=== PATIENT | female | born 1970 | race African-American/Black ===

== ENCOUNTER → 2016-04-17 | Outpatient (CLI) | payer OTHER ==
[~2016-04-17] VITALS: Ht 162.6 cm; Wt 93.9 kg
[~2016-04-17] MED LIST: ALPRAZOLAM ER1 MG PO; AZOR 10-20 MG1 EACH PO; AZOR 10-40 MG1 EACH PO; BENTYL 10 MG CA10 M1 PO; BENTYL 20 MG TA20 M1 PO; CELEBREX 200 M200 M1 PO; CELEBREX 200 M200 MG PO; CLEOCIN HCL150 MG PO; CLEOCIN HCL300 MG PO; ENDOCET 7.5-321 EACH PO; FLEXERIL PO; GLUCOPHAGE500 MG PO; GRALISE600 MG PO; HYDROCODON-ACE1 EAC7 PO; HYDROCODONE-AP1 EAC6 PO; IBUPROFEN 200200 M1; IBUPROFEN 600600 M1 PO; LIDODERM 5%1 PATC1 TRANSDERM; LYRICA; MEDROLDOSEPACK PO; METHADONE HCL 110 M1 PO; MIRALAX17 GM PO; MOBIC15 MG PO; MORPHINE SULFAT15 M3 PO; MS CONTIN15 MG PO; NABUMETONE 750750 M1 PO; NEURONTIN 300300 M1 PO; NORCO 5-325 TA1 EACH PO; NORFLEX100 MG PO; OXYCODON-ACETA1 EAC1 PO; OXYCONTIN10 M1 PO; PERCOCET 10-321 EAC1 PO; PERCOCET 5-3251 EACH PO; PERCOCET 7.5-31 EAC1 PO; PERCOCET 7.5-31 EACH PO; PERCOCET PO; PREDNISONE50 MG PO; PROVENTIL HFA6.7 G1; PULMICORT FLE180 MCG IH; REGLAN 10 MG TA10 MG PO; ULTRAM 50MG TAB50 MG PO; ZANTAC 150MG T150 MG PO
--- NOTE | ~2016-04-17 | HPC ---
[facility] [place] [address] PAIN MANAGEMENT CONSULTATION Name: MARVINOLGA [id number] Admission: 04/17/16 Attend Phys: Lili Gama MD Discharge: Date of : 74 Report #: [id number] THIS REPORT FOR: //name// CC: Latia Doan MD DATE OF SERVICE: 04/17/2016 FOLLOWUP COMPLAINT: "I had been working pretty hard and my pain gets worse after a long day of working." FOLLOWUP HISTORY: The patient is a 46-year-old female who has been followed in the pain clinic because of lumbar radiculopathy. As you recall, she has a disk herniation in her back. She has suffered from lumbar radiculopathy. She has gleaned benefits from the injections in the past. Greater than 50% improvement have been noted. At this juncture, she is working more hours and feels that her job is a bit more stressful. She is experiencing more pain and discomfort, particularly after a day of walking and hard work. She is experiencing pain in the low back with her hips down into her legs. There is a shooting sensation which is sharp, aching and is exacerbated by standing. She rates it as a 5-10 depending on the activity level. Bending and other activities of daily living can exacerbate her discomfort. PHYSICAL EXAMINATION: Blood pressure 152/107, pulse 93, respiratory rate 18, and room air saturations 100%. The patient has not fallen since we saw her last. She does have pain and discomfort radiating down into the low back area with pain down into the left calf area. IMPRESSION: 1. The patient with greater than 50% improvement in pain after an epidural steroid injection. 2. Lumbar radiculopathy with a bulging disk on the MRI consistent with the dermatome of pain in the low back area, this is the L5-S1 distribution. RECOMMENDATIONS: We discussed treatment options with the patient. At this juncture, she will continue with conservative treatment today. She will return in the near future for an epidural steroid injection to help decrease the pain and discomfort. [address] [address] PAIN MANAGEMENT CONSULTATION Name: OLGA MARVIN Room #: REG [facility] Noemi#: [id number] Admission: 04/17/16 Attend Phys: Lili Gama MD Discharge: Date of : 74 Report #: [id number] We would like to thank you for letting us participate in her care. We hope she continues to improve. <ELECTRONICALLY SIGNED> By: Lili Gama MD 04/20/16 0819 1109 1215 Lili Gama MD /nt
[2016-04-17 08:53] VITALS: BP 152/107
== END | disposition home or self-care (01) ==
LOC: PAIN 05:28
DX: M54.16 Radiculopathy, lumbar region (principal); G89.29 Other chronic pain

== ENCOUNTER → 2016-07-13 | Outpatient (CLI) | payer OTHER ==
[~2016-07-13] VITALS: Ht 162.6 cm; Wt 89.4 kg
[~2016-07-13] MED LIST changes: +MORPHINE SULFAT15 MG PO; +OXAYDO7.5 MG PO; +OXYCODONE-APAP1 EAC6 PO
--- NOTE | ~2016-07-13 | HPC ---
[facility] [place] [address] [address] [place] [address] PAIN MANAGEMENT CONSULTATION Name: MARVINOLGA Room #: REG BESNON FranklinSebastián#: [id number] Admission: 07/13/16 Attend Phys: Lili Gama MD Discharge: Date of : 74 Report #: [id number] THIS REPORT FOR: //name// CC: Latia Doan MD DATE OF SERVICE: 07/13/2016 FOLLOWUP COMPLAINT: The pain has gotten a little worse. I have lost some weight and have been exercising. FOLLOWUP HISTORY: The patient is a 46-year-old female who has been seen in the pain clinic because of lumbar radiculopathy. As you may recall, she suffers from lumbar radiculopathy. She has been exercising more. She has noticed that her pain and discomfort has increased somewhat. She has lost some weight. She still is having some pain, which is radiating down into her left leg. She rates it as a 7/10. Pain is worse with standing, bending and with certain movements. She is experiencing some sharp shooting pain, which is aching and stabbing. It makes work more problematic. She has worked last evening and feels a little bit tired today. PHYSICAL EXAMINATION: Blood pressure 178/113, pulse 91, respiratory rate 16, room air saturation 99%. The patient states her blood pressures are usually low nervous today, being in physician's office. Height 5 feet 4 inches, weight 89 kilograms, BMI is 33. The patient has pain and discomfort radiating down to the left leg involving her calf. IMPRESSION: 1. Lumbar radiculopathy, which has improved greater than 50% after epidural steroid injections. 2. Bulging disk on her MRI consistent with pain, which she is experiencing in the L5-S1 dermatomal region. RECOMMENDATION: We will proceed with another epidural steroid injection. We will also renew her medications. She will call us if she has any problems with her medications. PROCEDURE NOTE: The patient was placed in the prone position. She agreed to proceed after risk and benefits were again reviewed. The patient was placed in the prone position. Fluoroscopy was used to identify the L5-S1 interspace. This area had been sterilely prepped with Betadine and infiltrated with 0.25% bupivacaine. Total of 80 mg Depo-Medrol, 40 mg triamcinolone and 2 mL of 0.25% bupivacaine was injected. The patient tolerated the procedure well. Her pain decreased to a 4-5 at the time of discharge. [place] [address] PAIN MANAGEMENT CONSULTATION Name: OLGA MARVIN Room #: [facility] [id number] Admission: 07/13/16 Attend Phys: Lili Gama MD Discharge: Date of : 74 Report #: [id number] as needed. The patient has been given a script and will visit physical therapist for evaluation and recommendations on treatment. By: [id number] Lili Gama MD /comfort
[2016-07-13 12:45] VITALS: BP 178/113
== END | disposition home or self-care (01) ==
LOC: PAIN 05-25 07:23
DX: M54.16 Radiculopathy, lumbar region (principal); M48.06 Spinal stenosis, lumbar region

== ENCOUNTER 2016-09-18 11:09 | Emergency (ER) | payer OTHER ==
[~2016-09-18] VITALS: Ht 162.6 cm; Wt 83.5 kg
[2016-09-18 12:08] LABS: ABSOLUTE NEUTROPHILS 5.6 thou/uL (1.4-8.2); BASOPHILS 0.5 % (0.0-2.0); EOSINOPHILS 1.5 % (0.0-3.0); HEMATOCRIT 36.8 % (37.0-47.0); HEMOGLOBIN 12.3 gm/dL (12.0-15.0); LYMPHOCYTES 20.5 % (24.0-44.0); MCH 29.4 pg (26.0-34.0); MCHC 33.3 g/dL (28.0-37.0); MCV 88.4 fL (80.0-100.0); MONOCYTES 6.3 % (1.0-8.0); PLATELET COUNT 259 thou/uL (150-400); POLYS 71.2 % (36.0-66.0); RBC 4.17 mil/uL (4.20-5.00); WBC 7.8 thou/uL (4.0-11.0)
[2016-09-18 12:09] LABS: MANUAL DIFF NO
[2016-09-18 12:16] LABS: CALCIUM 9.2 mg/dL (8.5-10.1); CREATININE 0.7 mg/dL (0.6-1.0); POTASSIUM 4.2 mmol/L (3.5-5.1)
[2016-09-18] MEDS ORDERED: CITALOPRAM HBR40 MG PO (12:16)
[2016-09-18 12:20] LABS: ALBUMIN 3.4 g/dL (3.4-5.0); TOTAL BILIRUBIN 0.3 mg/dL (<0.1-1.0); TOTAL PROTEIN 7.1 g/dL (6.4-8.2)
[2016-09-18] MEDS ORDERED: NORCO 5-325 TA1 EACH PO (14:15)
[2016-09-18 16:17] LABS: URINE BILIRUBIN NEGATIVE (Negative); URINE BLOOD NEGATIVE (Negative); URINE COLOR YELLOW; URINE GLUCOSE-RANDOM* NEGATIVE (Negative); URINE KETONES TRACE (Negative); URINE NITRITE NEGATIVE (Negative); URINE PROTEIN (DIPSTICK) NEGATIVE (Negative); URINE UROBILINOGEN 0.2 E.U./dl (0.2-1.0)
== END 2016-09-18 14:47 | disposition home or self-care (01) ==
LOC: ER 11:09
PROVIDERS: Physician Assistant
DX: K85.90 Acute pancreatitis without necrosis or infection, unspecified (principal); G89.29 Other chronic pain; I10 Essential (primary) hypertension; J45.909 Unspecified asthma, uncomplicated; Z90.49 Acquired absence of other specified parts of digestive tract; Z88.1 Allergy status to other antibiotic agents; Z88.0 Allergy status to penicillin; F10.99 Alcohol use, unspecified with unspecified alcohol-induced disorder

== ENCOUNTER 2016-09-19 15:20 | Inpatient (IN) | payer OTHER ==
[~2016-09-19] VITALS: Ht 162.6 cm; Wt 83.5 kg
--- NOTE | ~2016-09-19 | S ---
[facility] [place] [address] SURGICAL PATH RPT PROCEDURE Name: CATHI MARVIN Room #: 426-P [facility] IN M.R.#: [id number] Admission: 09/19/16 Date of : 74 Discharge: 09/21/16 Report #: [id number] Path Case #: [id number] PATHOLOGY REPORT COLLECTION DATE: 09/21/2016 RECEIVED DATE: 09/21/2016 SUBMITTING PHYS: Dr. Clyde Rashid OTHER PHYS: DARYL Ceja SPECIMEN(S) RECEIVED: A.Antrum bx B.Antrum * * * * * * * * * * * * FINAL DIAGNOSIS: A. Tissue designated as "celiac and H. pylori-antrum," endoscopic biopsy: - Small bowel-type mucosa with no diagnostic abnormalities. - Negative for Helicobacter pylori. B. Gastric mucosa, antrum, endoscopic biopsy: - Mild reactive gastropathy associated with fibrotic lamina propria. - Negative for intestinal metaplasia or atrophy. - Negative for Helicobacter pylori. COMMENT: Helicobacter pylori immunohistochemical stain performed on block A1-negative. Helicobacter pylori immunohistochemical stain performed on block B1-negative. (IUV:mgr; d/t: 09/24/16) PATHOLOGIST: Rohini Levi M.D. REPORT ELECTRONICALLY SIGNED BY: Rohini Levi M.D. DATE/TIME: 09/24/2016 17:37 * * * * * * * * * * * * GROSS PATHOLOGY: A. Received in formalin labeled "Cathi Marvin, biopsy celiac and H. pylori-antrum," are two segments of martinez soft tissue measuring 0.6 x 0.5 x 0.1 cm in aggregate dimensions and ranging from 0.4 to 0.5 cm in maximum dimension. The specimen is submitted entirely in cassette A1. B. Received in formalin labeled "Cathi Marvin, antral biopsy, R/O H. pylori," are two segments of martinez soft tissue measuring 0.8 x 0.4 x 0.1 cm in aggregate dimensions and ranging from 0.3 to 0.8 cm in maximum dimension. The specimen is submitted entirely in cassette [facility] [address] [place] [address] SURGICAL PATH RPT PROCEDURE Name: CATHI MARVIN Room #: 426-P DIS IN M.R.#: [id number] Admission: 09/19/16 Date of : 74 Discharge: 09/21/16 Report #: [id number] Path Case #: [id number]. (CAA; 09/23/2016) CLINICAL HISTORY: Pre-op diagnosis: Abdominal pain Post-op diagnosis: Gastritis, esophagitis, hiatal hernia INITIAL CPT CODE(S): A; 95487, 91919 B; 08051, 83407 Professional services performed by [facility] at [facility] [address] , [place] [address] Technical services performed by [facility] at [address] [place] [address]., [address], [place] [address]. [facility] [address] [place] [address] PHONE: [phone] DIRECTOR: Isaak Hardy M.D. * * * END OF REPORT * * *
--- NOTE | ~2016-09-19 | HC ---
[facility] [place] [address] CONSULTATION Name: OLGA MARVIN Rachel Room #: 426-P [facility] IN .R.#: [id number] Admission: 09/19/16 Attend Phys: Rachid Tang MD Discharge: 09/21/16 Date of : 74 Report #: [id number] THIS REPORT FOR: //name// CC: Rachid Herring DATE OF SERVICE: 09/20/2016 CHIEF COMPLAINT: Abdominal pain. HISTORY OF PRESENT ILLNESS: The patient is a very pleasant 46-year-old -Niue[place] female patient who is employed at [employer]. She has past medical history of chronic abdominal pain, chronic back pain with hypertension, asthma, polycystic ovarian disease, rheumatoid arthritis. She is followed by pain medicine service and requires daily narcotic for her chronic pain. She is allergic to PENICILLIN. She denies emesis or hematemesis, but has had some nausea at times, especially during this most recent exacerbation. She was seen in the emergency department on 09/19/[address] scan of the abdomen and pelvis with contrast. This showed no acute intraabdominal abnormalities. Laboratory studies at that time showed a white blood cell count of 7.8, hemoglobin of 12.1, platelets of 255, AST of 20, ALT of 28, alkaline phosphatase of 54, lipase of 125. She had been seen previously recently in the emergency department and had a mild elevation in her lipase at 600, creatinine of 0.8, BUN of 7. PAST MEDICAL HISTORY: Positive for chronic back pain, hypertension, asthma, polycystic ovarian syndrome, ectopic , history of pancreatitis. PAST SURGICAL HISTORY: Positive for cholecystectomy and tubal ligation. She is followed by pain medicine clinic and has had epidural injections for chronic back pain. Also of note, the patient describes that her pain is significantly worsened during menstruation. She is regular and denies menorrhagia. MEDICATIONS: Include oxycodone, morphine, Celexa, MiraLax, gabapentin. She has tried Bentyl in the past. ALLERGIES: Include KEFLEX and PENICILLIN. REVIEW OF SYSTEMS: CONSTITUTIONAL: Negative for fevers or chills. Positive for 30-40 pound weight loss over the past year. HEENT: No dysphagia or odynophagia. No headache. CARDIOVASCULAR: No chest pain or palpitations. PULMONARY: No productive cough or shortness of breath. [facility] [address] [place] [address] CONSULTATION Name: MELVA MARVINSHANNENRona Rachel Room #: 426-P [facility] IN [facility].#: [id number] Admission: 09/19/16 Attend Phys: Rachid Tang MD Discharge: 09/21/16 Date of : 74 Report #: [id number] GASTROINTESTINAL: Positive for chronic crampy abdominal pain. This seems to be worsened at the time of menstruation. Some nausea, but denies emesis. No melena, hematochezia, diarrhea or constipation. She tolerates regular diet well. MUSCULOSKELETAL: She is positive for chronic back pain. NEUROLOGIC: No focal weakness, tingling or numbness. CUTANEOUS: No focal lesions or rashes. ENDOCRINE: No heat or cold intolerance. HEMATOLOGIC: No spontaneous epistaxis or easy ecchymosis. PHYSICAL EXAMINATION: GENERAL: The patient is awake, alert and oriented. She is in no acute distress. She is afebrile and normotensive. HEENT: Head is atraumatic and normocephalic. No icterus is appreciated. Pupils are equally round and reactive. Mucous membranes are clear and pink and well hydrated. NECK: Supple, without jugular venous distention. HEART: Regular without murmur. LUNGS: Clear to auscultation without respiratory distress. ABDOMEN: Soft and mildly tender to palpation throughout the entire abdomen. No focal palpable masses, no obvious palpable hernia and no rebound or guarding is appreciated. EXTREMITIES: Without clubbing, cyanosis or edema. PSYCHIATRIC: Shows normal mood and affect. CT scan images are reviewed in detail and no obvious intra-abdominal processes are identified. Gallbladder is surgically absent. Appendix is unremarkable. No surrounding stranding. No obvious diverticulitis appreciated. No free air or free fluid appreciated. IMPRESSION: 1. A 46-year-old -Niuean female with chronic severe abdominal pain as well as history of back pain requiring daily necrotic medication, followed by pain medicine service, has previously utilized epidural spinal injections for pain control. Crampy abdominal pain seems to be significantly worsened during time of menstruation according to the patient's detailed history. She also has history of ectopic . Suspect that endometriosis may be a contributing factor to this chronic abdominal pain. 2. The patient does have history of reflux and uses significant nonsteroidal antiinflammatory medications in addition to narcotic pain medication. Gastroenterology evaluation pending. RECOMMENDATION: 1. No immediate surgical intervention recommended. I have contracted obstetric gynecology office and arranged for an evaluation for the patient in the near future. [facility] [address] [place] [address] CONSULTATION Name: OLGA MARVIN Room #: 426-P DIS IN M.R.#: [id number] Admission: 09/19/16 Attend Phys: Rachid Tang MD Discharge: 09/21/16 Date of : 74 Report #: [id number] 2. Consultation very much appreciated. We will continue to follow closely and make further recommendations based upon clinical status. <ELECTRONICALLY SIGNED> By: Angus Jamil MD 09/27/16 0901 1704 1505 Angus Jamil MD /nt
[2016-09-19 15:20] VITALS: BP 140/110
[~2016-09-19 15:20] MED LIST changes: +CITALOPRAM HBR40 MG PO
[2016-09-19 16:19] LABS: ABSOLUTE NEUTROPHILS 5.4 thou/uL (1.4-8.2); BASOPHILS 0.3 % (0.0-2.0); EOSINOPHILS 1.1 % (0.0-3.0); HEMATOCRIT 36.1 % (37.0-47.0); HEMOGLOBIN 12.1 gm/dL (12.0-15.0); LYMPHOCYTES 22.8 % (24.0-44.0); MCHC 33.6 g/dL (28.0-37.0); MCV 89.2 fL (80.0-100.0); MONOCYTES 6.3 % (1.0-8.0); PLATELET COUNT 255 thou/uL (150-400); POLYS 69.5 % (36.0-66.0); RBC 4.04 mil/uL (4.20-5.00); WBC 7.8 thou/uL (4.0-11.0)
[2016-09-19 16:20] LABS: MANUAL DIFF NO
[2016-09-19 16:27] LABS: ANION GAP 8 mmol/L (7-16); BUN 7 mg/dL (7-18); CALCIUM 8.9 mg/dL (8.5-10.1); CHLORIDE 104 mmol/L (98-107); CO2 28 mmol/L (21-32); CREATININE 0.8 mg/dL (0.6-1.0); GLUCOSE 94 mg/dL (74-106); POTASSIUM 3.9 mmol/L (3.5-5.1); SODIUM 140 mmol/L (136-145)
[2016-09-19 16:31] LABS: ALBUMIN 3.3 g/dL (3.4-5.0); ALKALINE PHOSPHATASE 54 U/L (46-116); SGOT 20 U/L (15-37); SGPT 28 U/L (30-65); TOTAL BILIRUBIN 0.2 mg/dL (<0.1-1.0); TOTAL PROTEIN 7.2 g/dL (6.4-8.2)
[2016-09-19 16:41] LABS: DIRECT BILIRUBIN < 0.1 mg/dL (<0.1-0.3)
[2016-09-19 17:35] VITALS: BP 122/65
[2016-09-19 20:00] VITALS: BP 144/87
[2016-09-20 04:00] VITALS: BP 157/100
[2016-09-20 06:37] LABS: ABSOLUTE NEUTROPHILS 3.9 thou/uL (1.4-8.2); BASOPHILS 0.3 % (0.0-2.0); EOSINOPHILS 1.8 % (0.0-3.0); HEMATOCRIT 33.2 % (37.0-47.0); HEMOGLOBIN 10.8 gm/dL (12.0-15.0); LYMPHOCYTES 30.1 % (24.0-44.0); MCH 29.4 pg (26.0-34.0); MCHC 32.6 g/dL (28.0-37.0); MONOCYTES 7.7 % (1.0-8.0); PLATELET COUNT 222 thou/uL (150-400); POLYS 60.1 % (36.0-66.0); RBC 3.69 mil/uL (4.20-5.00); WBC 6.4 thou/uL (4.0-11.0)
[2016-09-20 06:47] LABS: MANUAL DIFF NO
[2016-09-20 06:52] LABS: ALBUMIN 2.7 g/dL (3.4-5.0); CALCIUM 8.2 mg/dL (8.5-10.1); CREATININE 0.6 mg/dL (0.6-1.0); POTASSIUM 3.8 mmol/L (3.5-5.1); TOTAL BILIRUBIN 0.2 mg/dL (<0.1-1.0); TOTAL PROTEIN 6.2 g/dL (6.4-8.2)
[2016-09-20 07:48] VITALS: BP 138/73
[2016-09-20 15:39] VITALS: BP 125/92
[2016-09-20 20:00] VITALS: BP 130/82
[2016-09-21 04:13] VITALS: BP 125/75
[2016-09-21 07:16] VITALS: BP 146/83
[2016-09-21] MEDS ORDERED: NORCO 5-325 TA1 EACH PO (11:32)
[2016-09-21 14:57] VITALS: BP 146/83
[2016-09-21 15:31] VITALS: BP 133/77
[2016-09-21] MEDS ORDERED: PROTONIX40 M1 PO (15:54)
[2016-09-21 16:22] VITALS: BP 146/83
[2016-09-21 16:48] VITALS: BP 146/83
[2016-09-22] MEDS ORDERED: ZOFRAN ODT8 MG PO (09:12)
== END 2016-09-21 16:48 | disposition home or self-care (01) | DRG 391 ==
LOC: ER 15:20 → 4E 16:17 → EROBS 16:17 → 4E 17:32
PROVIDERS: Nurse Practitioner
PROC: 0DB98ZX Excision of Duodenum, Via Natural or Artificial Opening Endoscopic, Diagnostic (ICD-10-PCS; principal; 2016-09-21)
PROC: 0DB78ZX Excision of Stomach, Pylorus, Via Natural or Artificial Opening Endoscopic, Diagnostic (ICD-10-PCS; principal; 2016-09-21)
DX: K44.9 Diaphragmatic hernia without obstruction or gangrene (principal); E43 Unspecified severe protein-calorie malnutrition; F11.20 Opioid dependence, uncomplicated; K20.9 Esophagitis, unspecified; K29.70 Gastritis, unspecified, without bleeding; I10 Essential (primary) hypertension; J45.909 Unspecified asthma, uncomplicated; G89.29 Other chronic pain; M54.9 Dorsalgia, unspecified; M06.9 Rheumatoid arthritis, unspecified; E28.2 Polycystic ovarian syndrome; K59.00 Constipation, unspecified; F41.9 Anxiety disorder, unspecified; F32.9 Major depressive disorder, single episode, unspecified; Z88.8 Allergy status to other drugs, medicaments and biological substances; Z90.49 Acquired absence of other specified parts of digestive tract; Z82.5 Family history of asthma and other chronic lower respiratory diseases; Z88.0 Allergy status to penicillin; Z80.9 Family history of malignant neoplasm, unspecified; Z83.3 Family history of diabetes mellitus; Z79.899 Other long term (current) drug therapy
CPT/HCPCS: 10084; 62110; 62900; 70005

== ENCOUNTER 2016-09-22 06:08 | Emergency (ER) | payer OTHER ==
[~2016-09-22] VITALS: Ht 162.6 cm; Wt 83.9 kg
[~2016-09-22 06:08] MED LIST changes: +PROTONIX40 M1 PO
[2016-09-22] MEDS ORDERED: ZOFRAN ODT8 MG PO (09:12)
== END 2016-09-22 09:18 | disposition home or self-care (01) ==
LOC: ER 06:08
DX: R10.13 Epigastric pain (principal); G89.29 Other chronic pain; J45.909 Unspecified asthma, uncomplicated; I10 Essential (primary) hypertension; F10.99 Alcohol use, unspecified with unspecified alcohol-induced disorder; Z88.1 Allergy status to other antibiotic agents; Z88.0 Allergy status to penicillin

== ENCOUNTER 2016-10-02 09:00 | Emergency (ER) | payer OTHER ==
[~2016-10-02] VITALS: Ht 162.6 cm; Wt 83.5 kg
[~2016-10-02 09:00] MED LIST changes: +ZOFRAN ODT8 MG PO
[2016-10-02 09:42] LABS: ABSOLUTE NEUTROPHILS 6.9 thou/uL (1.4-8.2); BASOPHILS 0.1 % (0.0-2.0); EOSINOPHILS 1.3 % (0.0-3.0); HEMATOCRIT 39.7 % (37.0-47.0); MCHC 32.7 g/dL (28.0-37.0); MCV 88.7 fL (80.0-100.0); MONOCYTES 7.5 % (1.0-8.0); PLATELET COUNT 351 thou/uL (150-400); POLYS 66.1 % (36.0-66.0); RBC 4.47 mil/uL (4.20-5.00); RDW 14.4 % (10.5-14.5); WBC 10.4 thou/uL (4.0-11.0)
[2016-10-02 09:47] LABS: MANUAL DIFF NO
[2016-10-02 09:58] LABS: ANION GAP 10 mmol/L (7-16); BUN 10 mg/dL (7-18); CALCIUM 9.3 mg/dL (8.5-10.1); CHLORIDE 104 mmol/L (98-107); CO2 29 mmol/L (21-32); CREATININE 0.9 mg/dL (0.6-1.0); GLUCOSE 112 mg/dL (74-106); POTASSIUM 3.3 mmol/L (3.5-5.1); SODIUM 143 mmol/L (136-145)
[2016-10-02 10:02] LABS: ALBUMIN 3.9 g/dL (3.4-5.0); ALKALINE PHOSPHATASE 58 U/L (46-116); DIRECT BILIRUBIN < 0.1 mg/dL (<0.1-0.3); SGOT 17 U/L (15-37); SGPT 26 U/L (30-65); TOTAL BILIRUBIN 0.3 mg/dL (<0.1-1.0); TOTAL PROTEIN 8.1 g/dL (6.4-8.2)
[2016-10-02] MEDS ORDERED: NORCO 5-325 TA1 EACH PO (11:27)
[2016-10-05] MEDS ORDERED: ZOFRAN ODT8 MG PO (09:46)
[2016-10-05] MEDS ORDERED: MORPHINE SULFAT15 MG PO ×2 (09:46→10:30)
[2016-10-05] MEDS ORDERED: MIRALAX17 GM PO (09:46)
[2016-10-05] MEDS ORDERED: OXYCODONE-APAP1 EAC6 PO (09:46)
[2016-10-05] MEDS ORDERED: GRALISE600 MG PO (09:46)
[2016-10-05] MEDS ORDERED: PROTONIX40 M1 PO (09:46)
[2016-10-05] MEDS ORDERED: PERCOCET 7.5-31 EAC1 PO (10:24)
[2016-10-05] MEDS ORDERED: MS CONTIN15 MG PO ×3 (10:24→10:30)
[2016-10-05] MEDS ORDERED: PERCOCET 5-3251 EACH PO (10:24)
== END 2016-10-02 11:39 | disposition home or self-care (01) ==
LOC: ER 09:00
PROVIDERS: Physician Assistant
DX: R10.13 Epigastric pain (principal); E87.6 Hypokalemia; R11.2 Nausea with vomiting, unspecified; I10 Essential (primary) hypertension; J45.909 Unspecified asthma, uncomplicated; F10.99 Alcohol use, unspecified with unspecified alcohol-induced disorder; Z90.49 Acquired absence of other specified parts of digestive tract; Z88.1 Allergy status to other antibiotic agents

== ENCOUNTER → 2016-10-05 | Outpatient (CLI) | payer OTHER ==
[~2016-10-05] VITALS: Ht 162.6 cm; Wt 85.4 kg
--- NOTE | ~2016-10-05 | HPC ---
[facility] [place] [address] [place] [address] PAIN MANAGEMENT CONSULTATION Name: OLGA MARVIN Room #: REG BENSON DuboisSebastiánDemarcoSebastián#: [id number] Admission: 10/05/16 Attend Phys: Lili Gama MD Discharge: Date of : 74 Report #: [id number] THIS REPORT FOR: //name// CC: Latia Doan MD DATE OF SERVICE: 10/05/2016 FOLLOWUP COMPLAINT: "I had been in the hospital. I think I have endometriosis." FOLLOWUP HISTORY: The patient is a 46-year-old female who has been followed in the pain clinic because of lumbar radiculopathy. She has undergone epidural steroid injections in the past. She gleans greater than 50% improvement after the injections. She returns today indicating that she continues to have pain and discomfort in her back with pain radiating down into her left leg. She has been hospitalized. She states that she has lost some weight. This was of concern. She has had a number of tests. She feels that the reason for the abdominal pain most likely is endometriosis. She is going to follow up with her [employer]. She finds that her medications continue to be helpful. She is taking them as prescribed. She is not having any problems with mentation. She is not having any problems with withdrawal. She feels that they enable her to continue working and to engage in activities of daily living with a decrease in her pain. She would like to continue their use. PHYSICAL EXAMINATION: Blood pressure 148/97, pulse 86, respiratory rate 16, room air saturation is 100, height 5 feet 4 inches, weight 162 pounds, BMI is 32. The patient has not fallen since we saw her last. She rates her pain as a 6/10. She continues to have pain and discomfort, which is shooting down in her leg with aching, stabbing and primarily on the left side and involving the hip as well. IMPRESSION: 1. Lumbar radiculopathy, which has improved in the past with epidural steroid injections greater than 50%. 2. on the MRI with findings of a disk pressing on the L5-S1 nerve dermatomal region. 3. Abdominal pain - the patient has undergone a number of test and they have reasoned that it may be secondary to endometriosis. She will follow up with her [employer]. RECOMMENDATIONS: We discussed treatment options with the patient. Risks and benefits of an epidural steroid injection were again reviewed. Possible complications were reviewed. The patient elects to proceed. [address] [address] PAIN MANAGEMENT CONSULTATION Name: OLGA MARVIN Room #: REG [facility]#: [id number] Admission: 10/05/16 Attend Phys: Lili Gama MD Discharge: Date of : 74 Report #: [id number] PROCEDURE NOTE: The patient was placed in the prone position. Fluoroscopy was used to identify the L5-S1 interspace. This area had been sterilely prepped with Betadine and infiltrated with 0.25% bupivacaine. A 17-gauge approach was used. Total of 80 mg Depo-Medrol, 40 mg triamcinolone and 2 mL of 0.25% bupivacaine was injected. The patient tolerated the procedure well. There were no complications. She remained in the pain clinic for an appropriate amount of time. We would like to thank you for letting us participate in her care. We hope she continues to improve. By: 1346 01 Lili Gama MD /comfort
[2016-10-05 09:30] VITALS: BP 148/97
== END | disposition home or self-care (01) ==
LOC: PAIN 09-26 06:39
DX: M51.26 Other intervertebral disc displacement, lumbar region (principal); M54.16 Radiculopathy, lumbar region; N80.9 Endometriosis, unspecified; R10.9 Unspecified abdominal pain; K21.9 Gastro-esophageal reflux disease without esophagitis; Z88.0 Allergy status to penicillin; Z88.8 Allergy status to other drugs, medicaments and biological substances; Z98.890 Other specified postprocedural states; Z79.899 Other long term (current) drug therapy

== ENCOUNTER 2016-10-25 17:57 | Observation (INO) | payer OTHER ==
[~2016-10-25] VITALS: Ht 162.6 cm; Wt 82.1 kg
--- NOTE | ~2016-10-25 | EKG ---
[address] [address] ELECTROCARDIOGRAM REPORT Name: OLGA MARVIN Room #: 316-P [facility]#: [id number] Admission: 10/25/16 Attend Phys: Tesha Carl Discharge: 10/27/16 Date of : 74 Report #: [id number] THIS REPORT FOR: //name// [facility] ED Test Date: 2016-10-25 Test Time: 18:07:33 Pat Name: OLGA MARVIN Department: Room: [facility] Gender: Machine Sewer: Aron GOMEZ : 1970 Requested By: Nica Gardner Order Number: [id number] MD: Darinel Larkin Measurements Intervals [place] Rate: 96 P: 16 NM: 127 QRS: 27 QRSD: 78 T: 55 QT: 337 QTc: 426 Interpretive Statements Sinus rhythm Compared to ECG 01/13/2016 05:57:57 No significant changes Electronically Signed On 10-28-2016 22:01:36 CDT by Darinel Larkin [email or web address] <ELECTRONICALLY SIGNED> By: Darinel Larkin MD 10/28/16 2201 06 06 Darinel Larkin MD /EPI
[2016-10-25 18:13] VITALS: BP 126/96
[2016-10-25 18:26] LABS: HEMATOCRIT 47.5 % (37.0-47.0); HEMOGLOBIN 15.5 gm/dL (12.0-15.0); MCHC 32.7 g/dL (28.0-37.0); MCV 88.7 fL (80.0-100.0); PLATELET COUNT 294 thou/uL (150-400); RBC 5.35 mil/uL (4.20-5.00); RDW 13.7 % (10.5-14.5); WBC 23.7 thou/uL (4.0-11.0)
[2016-10-25 18:28] LABS: MANUAL DIFF YES
[2016-10-25 18:41] LABS: ANION GAP 10 mmol/L (7-16); BUN 21 mg/dL (7-18); CALCIUM 9.7 mg/dL (8.5-10.1); CHLORIDE 100 mmol/L (98-107); CO2 25 mmol/L (21-32); CREATININE 1.4 mg/dL (0.6-1.0); GLUCOSE 124 mg/dL (74-106); POTASSIUM 4.9 mmol/L (3.5-5.1); SODIUM 135 mmol/L (136-145)
[2016-10-25 18:46] LABS: ABSOLUTE NEUTROPHILS 21.3 thou/uL (1.4-8.2); TOTAL CELL COUNT 100
[2016-10-25 18:48] LABS: ALBUMIN 3.7 g/dL (3.4-5.0); ALKALINE PHOSPHATASE 48 U/L (46-116); ANISOCYTOSIS 2+; SGOT 29 U/L (15-37); SGPT 24 U/L (30-65); TOTAL BILIRUBIN 0.5 mg/dL (<0.1-1.0); TOTAL PROTEIN 8.1 g/dL (6.4-8.2); TROPONIN-I < 0.04 ng/mL (<0.04-0.07)
[2016-10-25 19:38] LABS: URINE BILIRUBIN 1+ (Negative); URINE BLOOD 3+ (Negative); URINE COLOR YELLOW; URINE GLUCOSE-RANDOM* NEGATIVE (Negative); URINE KETONES NEGATIVE (Negative); URINE NITRITE NEGATIVE (Negative); URINE PROTEIN (DIPSTICK) 2+ (Negative); URINE UROBILINOGEN 0.2 E.U./dl (0.2-1.0)
[2016-10-25 19:42] LABS: ICTOTEST (BILI CONFIRMATORY) Positive (Negative)
[2016-10-25 19:44] LABS: HYALINE CASTS 0-3 Few /LPF (None Seen); SQUAMOUS >10 Many /LPF (0-3)
[2016-10-25 19:45] LABS: URINE RBC 3-10 Few /HPF (0-2); URINE WBC 0-5 Rare /HPF (0-5)
[2016-10-25 19:47] LABS: CRYSTALS None Seen /LPF (None Seen)
[2016-10-25 22:30] VITALS: BP 102/70
[2016-10-26 03:45] VITALS: BP 117/81
[2016-10-26 03:46] VITALS: BP 123/77
[2016-10-26 03:47] VITALS: BP 102/74
[2016-10-26 03:59] LABS: HEMATOCRIT 38.4 % (37.0-47.0); MCH 28.9 pg (26.0-34.0); MCHC 32.2 g/dL (28.0-37.0); MCV 89.9 fL (80.0-100.0); RBC 4.27 mil/uL (4.20-5.00); WBC 13.9 thou/uL (4.0-11.0)
[2016-10-26 04:01] LABS: HEMOGLOBIN 12.3 gm/dL (12.0-15.0)
[2016-10-26 04:16] LABS: CALCIUM 8.3 mg/dL (8.5-10.1); CREATININE 0.9 mg/dL (0.6-1.0); MAGNESIUM 1.7 mg/dL (1.8-2.4); POTASSIUM 4.3 mmol/L (3.5-5.1)
[2016-10-26 04:29] LABS: URINE BILIRUBIN NEGATIVE (Negative); URINE BLOOD 3+ (Negative); URINE COLOR YELLOW; URINE GLUCOSE-RANDOM* NEGATIVE (Negative); URINE KETONES NEGATIVE (Negative); URINE LEUKOCYTES-REFLEX NEGATIVE (Negative); URINE PROTEIN (DIPSTICK) NEGATIVE (Negative); URINE UROBILINOGEN 0.2 E.U./dl (0.2-1.0)
[2016-10-26 04:37] LABS: CASTS None Seen /LPF (None Seen); CRYSTALS None Seen /LPF (None Seen); SQUAMOUS >10 Many /LPF (0-3); URINE RBC 0-2 Rare /HPF (0-2); URINE WBC-REFLEX None Seen /HPF (0-5)
[2016-10-26 08:26] VITALS: BP 142/118
[2016-10-26 15:04] VITALS: BP 127/84
[2016-10-26 20:16] VITALS: BP 131/82
[2016-10-27 04:09] VITALS: BP 99/55
[2016-10-27 05:36] LABS: HEMOGLOBIN 10.7 gm/dL (12.0-15.0); MCH 29.7 pg (26.0-34.0); MCHC 32.3 g/dL (28.0-37.0); MCV 91.8 fL (80.0-100.0); RBC 3.59 mil/uL (4.20-5.00); RDW 13.7 % (10.5-14.5); WBC 9.1 thou/uL (4.0-11.0)
[2016-10-27 08:00] VITALS: BP 126/82
[2016-10-27] MEDS ORDERED: PERCOCET 7.5-31 EACH PO (11:12)
[2016-10-27] MEDS ORDERED: CIPRO500 MG PO (11:12)
[2016-10-27 15:03] VITALS: BP 126/82
== END 2016-10-27 15:37 | disposition home or self-care (01) ==
LOC: ER 17:57 → EROBS 21:33 → 3N 21:33
PROVIDERS: Hospitalist; Nurse Practitioner Acute Care; Physician Assistant
DX: R42 Dizziness and giddiness (principal); R55 Syncope and collapse; I10 Essential (primary) hypertension; R10.9 Unspecified abdominal pain; G89.29 Other chronic pain; D72.829 Elevated white blood cell count, unspecified; N17.9 Acute kidney failure, unspecified; K20.9 Esophagitis, unspecified; F32.9 Major depressive disorder, single episode, unspecified; M54.9 Dorsalgia, unspecified; J45.909 Unspecified asthma, uncomplicated; E28.2 Polycystic ovarian syndrome; E86.0 Dehydration; F10.99 Alcohol use, unspecified with unspecified alcohol-induced disorder
CPT/HCPCS: 23020; 23021; 23024; 23029; 23031

== ENCOUNTER 2016-11-09 07:53 | Emergency (ER) | payer OTHER ==
[~2016-11-09] VITALS: Ht 162.6 cm; Wt 81.7 kg
[~2016-11-09 07:53] MED LIST changes: +CIPRO500 MG PO
[2016-11-09 09:51] LABS: ABSOLUTE NEUTROPHILS 11.3 thou/uL (1.4-8.2); BASOPHILS 0.3 % (0.0-2.0); EOSINOPHILS 0.3 % (0.0-3.0); HEMATOCRIT 38.1 % (37.0-47.0); HEMOGLOBIN 12.2 gm/dL (12.0-15.0); LYMPHOCYTES 11.7 % (24.0-44.0); MCH 29.5 pg (26.0-34.0); MCHC 32.1 g/dL (28.0-37.0); MCV 91.9 fL (80.0-100.0); MONOCYTES 3.9 % (1.0-8.0); PLATELET COUNT 343 thou/uL (150-400); POLYS 83.8 % (36.0-66.0); RBC 4.15 mil/uL (4.20-5.00); RDW 14.5 % (10.5-14.5); WBC 13.5 thou/uL (4.0-11.0)
[2016-11-09 09:52] LABS: MANUAL DIFF NO
[2016-11-09 10:00] LABS: CALCIUM 9.1 mg/dL (8.5-10.1); CREATININE 0.7 mg/dL (0.6-1.0); POTASSIUM 3.4 mmol/L (3.5-5.1)
[2016-11-09 10:06] LABS: ALBUMIN 3.4 g/dL (3.4-5.0); TOTAL BILIRUBIN 0.1 mg/dL (<0.1-1.0); TOTAL PROTEIN 7.5 g/dL (6.4-8.2)
[2016-11-09] MEDS ORDERED: TRAMADOL 50 MG50 MG PO (11:22)
[2016-11-09] MEDS ORDERED: ZOFRAN ODT4 MG DISSOLVE (11:22)
[2016-11-09] MEDS ORDERED: PRILOSEC 20 MG20 MG PO (11:22)
[2016-11-09 12:03] LABS: URINE BILIRUBIN NEGATIVE (Negative); URINE BLOOD NEGATIVE (Negative); URINE COLOR YELLOW; URINE GLUCOSE-RANDOM* NEGATIVE (Negative); URINE KETONES NEGATIVE (Negative); URINE LEUKOCYTES-REFLEX NEGATIVE (Negative); URINE PROTEIN (DIPSTICK) NEGATIVE (Negative); URINE SPECIFIC GRAVITY 1.015 (1.003-1.035); URINE UROBILINOGEN 0.2 E.U./dl (0.2-1.0)
[2016-11-09 12:06] LABS: SSA (PROTEIN CONFIRMATORY) NEGATIVE (Negative)
== END 2016-11-09 12:15 | disposition home or self-care (01) ==
LOC: ER 07:53
PROVIDERS: Emergency Medicine
DX: R10.13 Epigastric pain (principal); R10.84 Generalized abdominal pain; G89.29 Other chronic pain; M54.9 Dorsalgia, unspecified; I10 Essential (primary) hypertension; J45.909 Unspecified asthma, uncomplicated; E28.2 Polycystic ovarian syndrome; F41.9 Anxiety disorder, unspecified; F32.9 Major depressive disorder, single episode, unspecified; F10.99 Alcohol use, unspecified with unspecified alcohol-induced disorder; Z88.1 Allergy status to other antibiotic agents; Z88.0 Allergy status to penicillin

== ENCOUNTER 2016-11-10 21:38 | Inpatient (IN) | payer OTHER ==
[~2016-11-10] VITALS: Ht 132.1 cm; Wt 81.6 kg
[2016-11-10 21:38] VITALS: BP 204/116
[~2016-11-10 21:38] MED LIST changes: +PRILOSEC 20 MG20 MG PO; +TRAMADOL 50 MG50 MG PO; +ZOFRAN ODT4 MG DISSOLVE
[2016-11-10 22:54] LABS: BASOPHILS 0.3 % (0.0-2.0); HEMATOCRIT 33.1 % (37.0-47.0); HEMOGLOBIN 10.9 gm/dL (12.0-15.0); LYMPHOCYTES 24.5 % (24.0-44.0); MCH 30.1 pg (26.0-34.0); MONOCYTES 7.5 % (1.0-8.0); PLATELET COUNT 316 thou/uL (150-400); POLYS 66.7 % (36.0-66.0); RBC 3.63 mil/uL (4.20-5.00); RDW 14.3 % (10.5-14.5)
[2016-11-10 22:56] LABS: ANION GAP 7 mmol/L (7-16); BUN 8 mg/dL (7-18); CALCIUM 8.4 mg/dL (8.5-10.1); CHLORIDE 105 mmol/L (98-107); CO2 28 mmol/L (21-32); CREATININE 0.8 mg/dL (0.6-1.0); GLUCOSE 95 mg/dL (74-106); POTASSIUM 3.7 mmol/L (3.5-5.1); SODIUM 140 mmol/L (136-145)
[2016-11-10 22:57] LABS: MANUAL DIFF NO
[2016-11-10 22:59] LABS: URINE BILIRUBIN NEGATIVE (Negative); URINE BLOOD NEGATIVE (Negative); URINE COLOR YELLOW; URINE GLUCOSE-RANDOM* NEGATIVE (Negative); URINE KETONES NEGATIVE (Negative); URINE NITRITE NEGATIVE (Negative); URINE PROTEIN (DIPSTICK) NEGATIVE (Negative); URINE SPECIFIC GRAVITY 1.015 (1.003-1.035); URINE UROBILINOGEN 0.2 E.U./dl (0.2-1.0)
[2016-11-10 23:01] LABS: ALBUMIN 2.8 g/dL (3.4-5.0); ALKALINE PHOSPHATASE 48 U/L (46-116); DIRECT BILIRUBIN < 0.1 mg/dL (<0.1-0.3); SGOT 18 U/L (15-37); SGPT 24 U/L (30-65); TOTAL BILIRUBIN 0.2 mg/dL (<0.1-1.0); TOTAL PROTEIN 6.5 g/dL (6.4-8.2)
[2016-11-10 23:40] VITALS: BP 142/70
[2016-11-11 00:03] VITALS: BP 158/97
[2016-11-11 00:11] VITALS: BP 158/97
[2016-11-11 03:23] VITALS: BP 102/73
[2016-11-11 09:27] VITALS: BP 119/71
[2016-11-11 16:00] VITALS: BP 133/91
[2016-11-11 18:58] VITALS: BP 126/77
[2016-11-11 23:06] LABS: GLYCOHEMOGLOBIN (HGB A1C) 5.1 % (4.8-5.6)
[2016-11-12 02:34] VITALS: BP 99/53
[2016-11-12 07:45] VITALS: BP 120/81
[2016-11-12] MEDS ORDERED: OXYCODONE HCL10 MG PO (11:00)
[2016-11-12] MEDS ORDERED: SENOKOT-S1 TA1 PO (11:00)
[2016-11-12 11:17] VITALS: BP 120/81
[2016-11-12 13:41] VITALS: BP 120/81
== END 2016-11-12 16:45 | disposition home or self-care (01) | DRG 760 ==
LOC: ER 21:38 → EROBS 23:03 → 5S 23:03
PROVIDERS: Emergency Medicine; Hospitalist
DX: N80.9 Endometriosis, unspecified (principal); E43 Unspecified severe protein-calorie malnutrition; K20.9 Esophagitis, unspecified; K59.00 Constipation, unspecified; I10 Essential (primary) hypertension; G89.29 Other chronic pain; M54.9 Dorsalgia, unspecified; J45.909 Unspecified asthma, uncomplicated; K21.9 Gastro-esophageal reflux disease without esophagitis; F41.9 Anxiety disorder, unspecified; F32.9 Major depressive disorder, single episode, unspecified; Z88.0 Allergy status to penicillin; Z88.1 Allergy status to other antibiotic agents; Z82.5 Family history of asthma and other chronic lower respiratory diseases; Z80.9 Family history of malignant neoplasm, unspecified; Z83.3 Family history of diabetes mellitus; Z79.899 Other long term (current) drug therapy; Z79.891 Long term (current) use of opiate analgesic; Z90.49 Acquired absence of other specified parts of digestive tract
CPT/HCPCS: 10086

== ENCOUNTER 2016-11-25 12:45 | Emergency (ER) | payer OTHER ==
[~2016-11-25] VITALS: Ht 162.6 cm; Wt 83.0 kg
[~2016-11-25 12:45] MED LIST changes: +OXYCODONE HCL10 MG PO; +SENOKOT-S1 TA1 PO
[2016-11-25 13:28] LABS: ABSOLUTE NEUTROPHILS 5.8 thou/uL (1.4-8.2); BASOPHILS 0.7 % (0.0-2.0); EOSINOPHILS 2.5 % (0.0-3.0); HEMATOCRIT 38.2 % (37.0-47.0); HEMOGLOBIN 12.2 gm/dL (12.0-15.0); LYMPHOCYTES 23.6 % (24.0-44.0); MANUAL DIFF NO; MCH 29.1 pg (26.0-34.0); MCV 91.1 fL (80.0-100.0); MONOCYTES 8.8 % (1.0-8.0); PLATELET COUNT 300 thou/uL (150-400); POLYS 64.4 % (36.0-66.0); RDW 14.1 % (10.5-14.5); WBC 9.1 thou/uL (4.0-11.0)
[2016-11-25 13:45] LABS: ANION GAP 9 mmol/L (7-16); BUN 10 mg/dL (7-18); CHLORIDE 103 mmol/L (98-107); CO2 27 mmol/L (21-32); CREATININE 0.8 mg/dL (0.6-1.0); GLUCOSE 88 mg/dL (74-106); POTASSIUM 3.9 mmol/L (3.5-5.1); SODIUM 139 mmol/L (136-145)
[2016-11-25 13:50] LABS: ALBUMIN 3.4 g/dL (3.4-5.0); ALKALINE PHOSPHATASE 51 U/L (46-116); DIRECT BILIRUBIN < 0.1 mg/dL (<0.1-0.3); SGOT 22 U/L (15-37); SGPT 23 U/L (30-65); TOTAL BILIRUBIN 0.2 mg/dL (<0.1-1.0); TOTAL PROTEIN 7.4 g/dL (6.4-8.2)
[2016-11-25 16:04] LABS: URINE BILIRUBIN NEGATIVE (Negative); URINE BLOOD NEGATIVE (Negative); URINE COLOR YELLOW; URINE GLUCOSE-RANDOM* NEGATIVE (Negative); URINE KETONES NEGATIVE (Negative); URINE LEUKOCYTES-REFLEX NEGATIVE (Negative); URINE PROTEIN (DIPSTICK) NEGATIVE (Negative); URINE UROBILINOGEN 0.2 E.U./dl (0.2-1.0)
[2016-11-25] MEDS ORDERED: PERCOCET 5-3251 EACH PO (17:16)
[2016-11-25] MEDS ORDERED: NAPROSYN500 MG PO (17:16)
== END 2016-11-25 17:58 | disposition home or self-care (01) ==
LOC: ER 12:45
PROVIDERS: Emergency Medicine
DX: R10.31 Right lower quadrant pain (principal); I10 Essential (primary) hypertension; J45.909 Unspecified asthma, uncomplicated; F41.9 Anxiety disorder, unspecified; F32.9 Major depressive disorder, single episode, unspecified; G89.29 Other chronic pain; F10.99 Alcohol use, unspecified with unspecified alcohol-induced disorder; Z90.49 Acquired absence of other specified parts of digestive tract; Z88.0 Allergy status to penicillin; Z88.1 Allergy status to other antibiotic agents

== ENCOUNTER 2016-12-05 12:57 | Emergency (ER) | payer OTHER ==
[~2016-12-05] VITALS: Ht 162.6 cm; Wt 83.0 kg
[~2016-12-05 12:57] MED LIST changes: +NAPROSYN500 MG PO
[2016-12-05] MEDS ORDERED: BENTYL 20 MG TA20 M1 PO (14:23)
== END 2016-12-05 16:05 | disposition home or self-care (01) ==
LOC: ER 12:57
DX: G89.29 Other chronic pain (principal); R10.9 Unspecified abdominal pain; I10 Essential (primary) hypertension; J45.909 Unspecified asthma, uncomplicated; F32.9 Major depressive disorder, single episode, unspecified; F41.9 Anxiety disorder, unspecified; F10.99 Alcohol use, unspecified with unspecified alcohol-induced disorder; Z90.49 Acquired absence of other specified parts of digestive tract; Z88.0 Allergy status to penicillin; Z88.1 Allergy status to other antibiotic agents

== ENCOUNTER → 2017-01-02 | Outpatient (CLI) | payer OTHER ==
[~2017-01-02] VITALS: Ht 167.6 cm; Wt 85.3 kg
[~2017-01-02] MED LIST changes: +MIRALAX119 GM PO
--- NOTE | ~2017-01-02 | HPC ---
[facility] [place] [address] PAIN MANAGEMENT CONSULTATION Name: MARVINCASTILLODOMOMONA Ramos Room #: REG BENSON Franklin#: [id number] Admission: 01/02/17 Attend Phys: Lili Gmaa MD Discharge: Date of : 74 Report #: [id number] THIS REPORT FOR: //name// CC: Latia Doan MD DATE OF SERVICE: 01/02/2017 FOLLOWUP COMPLAINT: "Pain in the back is increased with pain down into my left leg." FOLLOWUP HISTORY: The patient is a 46-year-old female who has been seen and followed in the pain clinic because of lumbar radicular pain. She has undergone epidural steroid injections in the past and found that beneficial. She returns today indicating that her pain has increased in intensity. She rates it as a 9/10. She is experiencing pain, which radiates down into her hip, left side and into the posterior portion of her leg. Pain in the right side has improved. She feels that another epidural steroid injection could prove beneficial, would like to proceed. She has had no complications in the procedures in the past. She continues to work and finds that this prolonged working exacerbates her discomfort. PHYSICAL EXAMINATION: Blood pressure 146/105, respiratory rate 16, pulse is 82. Saturations 100%. The patient's height 5 feet 6 inches, weight 188 pounds, BMI is 30. She has not fallen since we saw her last, she has pain and discomfort which is radiating down the posterior portion of her leg in the L5-S1 dermatomal distribution. IMPRESSION: 1. Lumbar radiculopathy with pain radiating into the left L5-S1 dermatomal distribution. 2. Possibility of endometriosis. RECOMMENDATIONS: We discussed treatment options with the patient. Risks and benefits of an epidural steroid injection were again reviewed. Possible complications were discussed. The patient elects to proceed. PROCEDURE NOTE: The patient was placed in the prone position. Fluoroscopy was used to identify the L5-S1 distribution on the left side. A 17-gauge Tuohy with loss of resistance technique was used to gain access to the epidural space. There was no CSF, heme or paresthesia. Total of 80 mg Depo-Medrol, 40 mg triamcinolone and 2 mL of 0.25% bupivacaine was injected. The patient tolerated the procedure well. There were no complications. She remained in the pain clinic for an appropriate amount of time. [place] [address] PAIN MANAGEMENT CONSULTATION Name: OLGA MARVIN Room #: REG [facility]#: [id number] Admission: 01/02/17 Attend Phys: Lili Gama MD Discharge: Date of : 74 Report #: [id number] needed. A script for her medications have been renewed. We would like to thank you for letting us participate in her care. We hope she continues to improve. <ELECTRONICALLY SIGNED> By: Lili Gama MD 01/11/17 1255 1117 0232 Lili Gama MD /[facility]
[2017-01-02 09:08] VITALS: BP 146/105
== END | disposition home or self-care (01) ==
LOC: PAIN 12-19 06:48
DX: M54.16 Radiculopathy, lumbar region (principal); G89.29 Other chronic pain; K21.9 Gastro-esophageal reflux disease without esophagitis; Z88.0 Allergy status to penicillin; Z87.891 Personal history of nicotine dependence; Z98.890 Other specified postprocedural states

== ENCOUNTER 2017-01-28 11:56 | Emergency (ER) | payer OTHER ==
[~2017-01-28] VITALS: Ht 162.6 cm; Wt 83.9 kg
[~2017-01-28 11:56] MED LIST changes: -MIRALAX119 GM PO
[2017-01-28 12:49] LABS: URINE BILIRUBIN NEGATIVE (Negative); URINE BLOOD 3+ (Negative); URINE COLOR YELLOW; URINE GLUCOSE-RANDOM* NEGATIVE (Negative); URINE KETONES NEGATIVE (Negative); URINE NITRITE NEGATIVE (Negative); URINE PROTEIN (DIPSTICK) NEGATIVE (Negative); URINE SPECIFIC GRAVITY >= 1.030 (1.003-1.035); URINE UROBILINOGEN 0.2 E.U./dl (0.2-1.0)
[2017-01-28 13:02] LABS: BACTERIA 1-9 Few /HPF (None Seen); CASTS None Seen /LPF (None Seen); CRYSTALS None Seen /LPF (None Seen); SQUAMOUS 4-10 Moderate /LPF (0-3); URINE RBC None Seen /HPF (0-2); URINE WBC None Seen /HPF (0-5)
[2017-01-28 15:04] LABS: ABSOLUTE NEUTROPHILS 6.6 thou/uL (1.4-8.2); BASOPHILS 0.5 % (0.0-2.0); EOSINOPHILS 2.5 % (0.0-3.0); HEMATOCRIT 38.1 % (37.0-47.0); HEMOGLOBIN 11.8 gm/dL (12.0-15.0); LYMPHOCYTES 24.9 % (24.0-44.0); MCH 28.9 pg (26.0-34.0); MCHC 31.1 g/dL (28.0-37.0); MCV 93.2 fL (80.0-100.0); MONOCYTES 4.8 % (1.0-8.0); PLATELET COUNT 297 thou/uL (150-400); POLYS 67.3 % (36.0-66.0); RBC 4.09 mil/uL (4.20-5.00); RDW 14.1 % (10.5-14.5); WBC 9.8 thou/uL (4.0-11.0)
[2017-01-28 15:08] LABS: MANUAL DIFF NO
[2017-01-28 16:23] LABS: ALBUMIN 2.9 g/dL (3.4-5.0); CALCIUM 8.4 mg/dL (8.5-10.1); CREATININE 0.7 mg/dL (0.6-1.0); POTASSIUM 3.9 mmol/L (3.5-5.1); TOTAL BILIRUBIN 0.2 mg/dL (<0.1-1.0); TOTAL PROTEIN 6.4 g/dL (6.4-8.2)
[2017-01-28] MEDS ORDERED: BENTYL 20 MG TA20 M1 PO (18:15)
[2017-01-28] MEDS ORDERED: MIRALAX119 GM PO (18:15)
== END 2017-01-28 19:04 | disposition home or self-care (01) ==
LOC: ER 11:56
PROVIDERS: Emergency Medicine; Physician Assistant
DX: R10.33 Periumbilical pain (principal); R10.13 Epigastric pain; R10.11 Right upper quadrant pain; G89.29 Other chronic pain; I10 Essential (primary) hypertension; J45.909 Unspecified asthma, uncomplicated; E28.2 Polycystic ovarian syndrome; F41.9 Anxiety disorder, unspecified; F32.9 Major depressive disorder, single episode, unspecified; F10.99 Alcohol use, unspecified with unspecified alcohol-induced disorder; Z88.1 Allergy status to other antibiotic agents; Z88.0 Allergy status to penicillin

== ENCOUNTER 2017-03-27 21:26 | Emergency (ER) | payer OTHER ==
[~2017-03-27] VITALS: Ht 162.6 cm; Wt 86.2 kg
[~2017-03-27 21:26] MED LIST changes: +MIRALAX119 GM PO
[2017-03-27] MEDS ORDERED: VENTOLIN HFA 1818 GM INH (23:09)
[2017-03-27] MEDS ORDERED: PREDNISONE 20 M20 MG PO (23:09)
== END 2017-03-27 23:22 | disposition home or self-care (01) ==
LOC: ER 21:26
DX: J45.901 Unspecified asthma with (acute) exacerbation (principal); J02.9 Acute pharyngitis, unspecified; G89.29 Other chronic pain; M54.9 Dorsalgia, unspecified; I10 Essential (primary) hypertension; E28.2 Polycystic ovarian syndrome; F41.9 Anxiety disorder, unspecified; F32.9 Major depressive disorder, single episode, unspecified; Z88.1 Allergy status to other antibiotic agents; Z88.0 Allergy status to penicillin

== ENCOUNTER → 2017-04-05 | Outpatient (CLI) | payer OTHER ==
[~2017-04-05] VITALS: Ht 162.6 cm; Wt 92.1 kg
[~2017-04-05] MED LIST changes: +ANTIVERT25 MG PO; +BENADRYL25 MG PO; +BUTALB-APAP-CA1 EACH PO; +ENDOCET 10-3251 EACH PO; +GABAPENTIN600 M1 PO; +IMITREX 25 MG T25 M1 PO; +LEVSIN0.125 MG PO; +NAPROSYN500 M1 PO; +PEPCID20 MG PO; +PERCOCET 10-321 EACH PO; +PREDNISONE 20 M20 MG PO; -PROVENTIL HFA6.7 G1; +PROVENTIL HFA6.7 G1 INH; +TOPAMAX50 MG PO; +TRIAMTERENE/HCT1 CA1 PO; +VENTOLIN HFA 1818 GM INH; +WELLBUTRIN SR150 MG PO; +ZOFRAN8 MG PO
--- NOTE | ~2017-04-05 | HPC ---
[facility] [place] [address] PAIN MANAGEMENT CONSULTATION Name: OLGA MARVIN Room #: REG BENSON DuboisSebastiánDemarcoSebastián#: [id number] Admission: 04/05/17 Attend Phys: Lili Gama MD Discharge: Date of : 74 Report #: [id number] THIS REPORT FOR: //name// CC: Latia Gama DATE OF SERVICE: 04/05/2017 FOLLOWUP COMPLAINT: Here for medication renewal. FOLLOWUP HISTORY: The patient is a 47-year-old female who has been seen and followed in the Pain Clinic. As you recall, she has a problem with lumbar radiculopathy. MRI has shown problems and pressure on the nerve in the affected area. At this juncture, she would like to continue with a nonsurgical approach. She has undergone epidural steroid injections and found them helpful. At this juncture, she would like to continue with her current medication regimen. She would like to try physical therapy and note its efficacy. She is not having problems with bowel or bladder dysfunction or any significant changes since we saw her last. PHYSICAL EXAMINATION: Blood pressure 143/88, pulse 90, respiratory rate 16, room air saturation 98%. Height 5 feet 4 inches, weight 203 pounds, BMI is 34. The patient has pain and discomfort radiating down into her back and in her legs and particularly in the left side. There is a shooting discomfort, sharp, aching pain, which is stabbing on occasion. She rates it as a 10/10 today. Note that she does note that the weather has changed and this has sometime exacerbates her pain and discomfort. IMPRESSION: 1. Lumbar radiculopathy with pain radiating down to the left L5-S1 dermatomal distribution -- The patient fell a few days ago in a fast food venue. She slipped and both feet came from under her. She landed on her backside. She feels that her pain is reasonably controlled at this point and did not have a significant bump in her discomfort. 2. Endometriosis. 3. Disk lesion on the MRI finding pressure on the L5-S1 nerve root dermatomal region. RECOMMENDATIONS: We will continue with her current medical regimen. The patient is not interested at this juncture in undergoing surgery and would like to continue to pursue a conservative treatment pattern. A script for her medications have been written. [address] [address] PAIN MANAGEMENT CONSULTATION Name: OLGA MARVIN Room #: REG BENSON Leena#: [id number] Admission: 04/05/17 Attend Phys: Lili Gama MD Discharge: Date of : 74 Report #: [id number] We would like to thank you for letting us participate in her care. We hope she continues to improve. <ELECTRONICALLY SIGNED> By: Lili Gama MD 04/12/17 0806 1633 0134 MD DONA Bucio
[2017-04-05 09:23] VITALS: BP 143/88
== END ==
LOC: PAIN 03-22 06:59
DX: G54.4 Lumbosacral root disorders, not elsewhere classified (principal); N80.9 Endometriosis, unspecified

== ENCOUNTER 2017-04-10 11:55 | Emergency (ER) | payer OTHER ==
[~2017-04-10] VITALS: Ht 162.6 cm; Wt 88.5 kg
--- NOTE | ~2017-04-10 | EKG ---
[address] [address] ELECTROCARDIOGRAM REPORT Name: MARVINOLGA SAMUEL Rachel Room #: [facility]#: [id number] Admission: 04/10/17 Attend Phys: Discharge: 04/10/17 Date of : 74 Report #: [id number] THIS REPORT FOR: //name// [facility] ED Test Date: 2017-04-10 Test Time: 12:10:17 Pat Name: OLGA MARVIN Department: Room: Gender: F Hand Roller: Denise BERG : 1970 Requested By: Cm Cardenas Order Number: [id number] MD: Thanh Jo Measurements Intervals [place] Rate: 78 P: 9 ID: 149 QRS: 6 QRSD: 96 T: 29 QT: 370 QTc: 422 Interpretive Statements Sinus rhythm Normal tracing Compared to ECG 10/25/2016 18:07:33 No significant changes Electronically Signed On 04-12-2017 7:44:44 [employer]AIL ARE[employer]NAGER by Thanh Jo [email or web address] <ELECTRONICALLY SIGNED> By: Thanh Jo MD, [facility] 04/12/17 0744 1210 121 Thanh Jo MD, FACC /EPI
[~2017-04-10 11:55] MED LIST changes: -ANTIVERT25 MG PO; -BENADRYL25 MG PO; -BUTALB-APAP-CA1 EACH PO; -ENDOCET 10-3251 EACH PO; -GABAPENTIN600 M1 PO; -IMITREX 25 MG T25 M1 PO; -LEVSIN0.125 MG PO; -NAPROSYN500 M1 PO; -PEPCID20 MG PO; -PERCOCET 10-321 EACH PO; +PROVENTIL HFA6.7 G1; -PROVENTIL HFA6.7 G1 INH; -TOPAMAX50 MG PO; -TRIAMTERENE/HCT1 CA1 PO; -WELLBUTRIN SR150 MG PO; -ZOFRAN8 MG PO
[2017-04-10 12:27] LABS: HEMATOCRIT 36.7 % (37.0-47.0); MCH 29.4 pg (26.0-34.0); MCHC 32.7 g/dL (28.0-37.0); MCV 89.9 fL (80.0-100.0); RBC 4.09 mil/uL (4.20-5.00); RDW 14.2 % (10.5-14.5); WBC 9.1 thou/uL (4.0-11.0)
[2017-04-10 13:53] LABS: CALCIUM 8.9 mg/dL (8.5-10.1); CREATININE 0.8 mg/dL (0.6-1.0); POTASSIUM 4.1 mmol/L (3.5-5.1)
[2017-04-10] MEDS ORDERED: BENTYL 10 MG CA10 M1 PO (13:56)
[2017-04-10] MEDS ORDERED: ANTIVERT25 MG PO (13:56)
[2017-04-10 13:59] LABS: ALBUMIN 3.4 g/dL (3.4-5.0); TOTAL BILIRUBIN 0.2 mg/dL (<0.1-1.0); TOTAL PROTEIN 6.7 g/dL (6.4-8.2)
== END 2017-04-10 14:41 | disposition home or self-care (01) ==
LOC: ER 11:55
PROVIDERS: Emergency Medicine
DX: R42 Dizziness and giddiness (principal); R10.9 Unspecified abdominal pain; G89.29 Other chronic pain; M54.9 Dorsalgia, unspecified; I10 Essential (primary) hypertension; J45.909 Unspecified asthma, uncomplicated; E28.2 Polycystic ovarian syndrome; F41.9 Anxiety disorder, unspecified; F32.9 Major depressive disorder, single episode, unspecified; Z88.1 Allergy status to other antibiotic agents; Z88.6 Allergy status to analgesic agent

== ENCOUNTER 2017-05-01 11:55 | Emergency (ER) | payer OTHER ==
[~2017-05-01] VITALS: Ht 162.6 cm; Wt 86.2 kg
[~2017-05-01 11:55] MED LIST changes: +ANTIVERT25 MG PO; -PROVENTIL HFA6.7 G1; +PROVENTIL HFA6.7 G1 INH
[2017-05-01] MEDS ORDERED: ANTIVERT25 MG PO (14:17)
[2017-05-01 15:22] VITALS: BP 142/106
[2017-06-28] MEDS ORDERED: BENADRYL25 MG PO (09:25)
[2017-06-28] MEDS ORDERED: CLEOCIN HCL150 MG PO (09:37)
[2017-06-28] MEDS ORDERED: OXYCODONE-APAP1 EAC6 PO ×2 (09:37→09:45)
[2017-06-28] MEDS ORDERED: MS CONTIN15 MG PO ×2 (09:37→09:45)
[2017-06-28] MEDS ORDERED: GRALISE600 MG PO ×2 (09:37→09:45)
[2017-06-28] MEDS ORDERED: NAPROSYN500 MG PO (09:37)
[2017-06-28] MEDS ORDERED: ANTIVERT25 MG PO (09:37)
[2017-06-28] MEDS ORDERED: BENTYL 10 MG CA10 M1 PO (09:37)
[2017-06-28] MEDS ORDERED: OXAYDO7.5 MG PO (09:45)
[2017-06-28] MEDS ORDERED: PERCOCET 7.5-31 EACH PO (09:57)
[2017-09-25] MEDS ORDERED: PERCOCET 7.5-31 EACH PO (08:50)
[2017-09-25] MEDS ORDERED: NAPROSYN500 MG PO (08:50)
[2017-09-25] MEDS ORDERED: GRALISE600 MG PO (08:50)
[2017-09-25] MEDS ORDERED: OXYCODONE-APAP1 EAC6 PO (08:50)
[2017-09-25] MEDS ORDERED: PEPCID20 MG PO (08:50)
[2017-09-25] MEDS ORDERED: ZOFRAN ODT8 MG PO (08:50)
[2017-09-25] MEDS ORDERED: MS CONTIN15 MG PO (08:50)
[2017-11-13] MEDS ORDERED: TRIAMTERENE/HCT1 CA1 PO (08:19)
[2017-11-13] MEDS ORDERED: GABAPENTIN600 M1 PO (08:20)
[2017-11-13] MEDS ORDERED: WELLBUTRIN SR150 MG PO (08:23)
[2017-11-13] MEDS ORDERED: PERCOCET 10-321 EACH PO (08:41)
[2017-12-08] MEDS ORDERED: TOPAMAX50 MG PO (02:24)
[2017-12-08] MEDS ORDERED: PERCOCET 7.5-31 EACH PO (02:24)
[2017-12-08] MEDS ORDERED: IMITREX 25 MG T25 M1 PO (02:48)
[2017-12-20] MEDS ORDERED: MS CONTIN15 MG PO ×2 (09:31→10:47)
[2017-12-20] MEDS ORDERED: NAPROSYN500 M1 PO (10:47)
[2017-12-20] MEDS ORDERED: GRALISE600 MG PO (10:47)
[2017-12-20] MEDS ORDERED: PERCOCET 7.5-31 EACH PO ×2 (10:47→10:54)
[2017-12-20] MEDS ORDERED: ZOFRAN8 MG PO (10:47)
[2017-12-20] MEDS ORDERED: PEPCID20 MG PO (10:47)
== END 2017-05-01 15:24 | disposition home or self-care (01) ==
LOC: ER 11:55
DX: H81.12 Benign paroxysmal vertigo, left ear (principal); G89.29 Other chronic pain; M54.5 Low back pain; R51 Headache; I10 Essential (primary) hypertension; J45.909 Unspecified asthma, uncomplicated; E28.2 Polycystic ovarian syndrome; F41.9 Anxiety disorder, unspecified; F32.9 Major depressive disorder, single episode, unspecified; Z88.1 Allergy status to other antibiotic agents; Z88.0 Allergy status to penicillin

== ENCOUNTER 2017-06-12 05:26 | Emergency (ER) | payer OTHER ==
[~2017-06-12] VITALS: Ht 162.6 cm; Wt 86.2 kg
[2017-06-12 05:31] VITALS: BP 152/105
[2017-06-12] MEDS ORDERED: NAPROSYN500 MG PO (06:25)
[2017-06-12] MEDS ORDERED: CLEOCIN HCL150 MG PO (06:25)
[2017-06-28] MEDS ORDERED: BENADRYL25 MG PO (09:25)
[2017-06-28] MEDS ORDERED: OXYCODONE-APAP1 EAC6 PO ×2 (09:37→09:45)
[2017-06-28] MEDS ORDERED: NAPROSYN500 MG PO (09:37)
[2017-06-28] MEDS ORDERED: ANTIVERT25 MG PO (09:37)
[2017-06-28] MEDS ORDERED: GRALISE600 MG PO ×2 (09:37→09:45)
[2017-06-28] MEDS ORDERED: MS CONTIN15 MG PO ×2 (09:37→09:45)
[2017-06-28] MEDS ORDERED: BENTYL 10 MG CA10 M1 PO (09:37)
[2017-06-28] MEDS ORDERED: CLEOCIN HCL150 MG PO (09:37)
[2017-06-28] MEDS ORDERED: OXAYDO7.5 MG PO (09:45)
[2017-06-28] MEDS ORDERED: PERCOCET 7.5-31 EACH PO (09:57)
[2017-09-25] MEDS ORDERED: OXYCODONE-APAP1 EAC6 PO (08:50)
[2017-09-25] MEDS ORDERED: NAPROSYN500 MG PO (08:50)
[2017-09-25] MEDS ORDERED: GRALISE600 MG PO (08:50)
[2017-09-25] MEDS ORDERED: PEPCID20 MG PO (08:50)
[2017-09-25] MEDS ORDERED: PERCOCET 7.5-31 EACH PO (08:50)
[2017-09-25] MEDS ORDERED: ZOFRAN ODT8 MG PO (08:50)
[2017-09-25] MEDS ORDERED: MS CONTIN15 MG PO (08:50)
[2017-11-13] MEDS ORDERED: TRIAMTERENE/HCT1 CA1 PO (08:19)
[2017-11-13] MEDS ORDERED: GABAPENTIN600 M1 PO (08:20)
[2017-11-13] MEDS ORDERED: WELLBUTRIN SR150 MG PO (08:23)
[2017-11-13] MEDS ORDERED: PERCOCET 10-321 EACH PO (08:41)
[2017-12-08] MEDS ORDERED: TOPAMAX50 MG PO (02:24)
[2017-12-08] MEDS ORDERED: PERCOCET 7.5-31 EACH PO (02:24)
[2017-12-08] MEDS ORDERED: IMITREX 25 MG T25 M1 PO (02:48)
[2017-12-20] MEDS ORDERED: MS CONTIN15 MG PO ×2 (09:31→10:47)
[2017-12-20] MEDS ORDERED: PERCOCET 7.5-31 EACH PO ×2 (10:47→10:54)
[2017-12-20] MEDS ORDERED: PEPCID20 MG PO (10:47)
[2017-12-20] MEDS ORDERED: GRALISE600 MG PO (10:47)
[2017-12-20] MEDS ORDERED: NAPROSYN500 M1 PO (10:47)
[2017-12-20] MEDS ORDERED: ZOFRAN8 MG PO (10:47)
== END 2017-06-12 06:40 | disposition home or self-care (01) ==
LOC: ER 05:26
DX: K08.89 Other specified disorders of teeth and supporting structures (principal)

== ENCOUNTER → 2017-06-28 | Outpatient (CLI) | payer OTHER ==
[~2017-06-28] VITALS: Ht 162.6 cm; Wt 98.4 kg
[~2017-06-28] MED LIST changes: +BENADRYL25 MG PO; +LEVSIN0.125 MG PO; +PEPCID20 MG PO; +PROVENTIL HFA6.7 G1; -PROVENTIL HFA6.7 G1 INH
--- NOTE | ~2017-06-28 | HPC ---
[facility] [place] [address] PAIN MANAGEMENT CONSULTATION Name: OLGA MARVIN Room #: REG BENSON Leena#: [id number] Admission: 06/28/17 Attend Phys: Lili Gama MD Discharge: Date of : 74 Report #: [id number] THIS REPORT FOR: //name// CC: Latia Herring Latia Gama DATE OF SERVICE: 06/28/2017 FOLLOWUP COMPLAINT: "Here for medication renewal and I would like to have another epidural injection because my pain has returned." FOLLOWUP HISTORY: The patient is a 47-year-old female who has been seen and followed in the pain clinic because of lumbar radiculopathy. She has undergone epidural steroid injections involving L5-S1 dermatomal distribution. She notes that these injections in the past have been quite beneficial. She has noticed worsening of her pain at this juncture. She rates it as a 7/10. She works in a laboratory. She stands on her feet for a long periods of time. This has exacerbated the pain and discomfort which she is experiencing. Bending and weather changes have also contributed to the increased pain and discomfort that she is experiencing. She finds that her medications of MS Contin and oxycodone are beneficial. Gralise is helpful as well. Naprosyn continues to be taken. Overall, the patient feels that these medications are helpful, but at this juncture pain has returned and is more problematic. She has returned today for renewal of her medications and would like to proceed as quickly as possible for another lumbar epidural steroid injection in the near future. ALLERGIES: PENICILLIN AND KEFLEX. CURRENT MEDICATIONS: Clindamycin 150 mg q.8 hours, meclizine 25 mg, Bentyl 10 mg b.i.d. for cramping, oxycodone 7.5 mg 1 tablet p.o. b.i.d., morphine sulfate 15 mg 1 tablet daily, gabapentin/gralise 600 mg 2 tablets in the evening with evening meals, citalopram 40 mg, amlodipine/olmesartan 10/20, albuterol inhaler p.r.n., alprazolam 1 tablet 1 mg p.r.n., metformin 500 mg b.i.d. PAIN CLINIC ASSESSMENT: 1. History of osteoarthritis, not applicable and rheumatoid arthritis, not applicable. 2. Height 5 feet 4 inches, weight 217 pounds, BMI is 37.2. 3. Vital Signs: Blood pressure 160/76, pulse 93, respiratory rate 16, room air saturation 99%. 4. Pain intensity 7/10. 5. Fall risk: The patient has fallen on a wet floor in the store about a week ago. She has noticed worsening of her pain since then. 6. The patient is on blood thinner, the patient is not receiving blood thinning medication. [address] [address] PAIN MANAGEMENT CONSULTATION Name: OLGA MARVIN Room #: REG [facility]#: [id number] Admission: 06/28/17 Attend Phys: Lili Gama MD Discharge: Date of : 74 Report #: [id number] 7. History of hypertension. The patient is being treated for hypertension. 8. Opioid therapy: The patient has a signed contract with the pain clinic. 9. Risk assessment tool. 10. Functional assessment tool. 11. Recreational drug use, the patient denies use of recreational drugs. 12. Tobacco: The patient has never smoked cigarettes. 13. Alcohol use: The patient on occasion uses alcoholic drinks and alcoholic beverage. PHYSICAL EXAMINATION: GENERAL: The patient is a well-developed black female. She appears her stated age. Orientation: The patient is alert and oriented x 3. The patient's affect is appropriate. HEENT: Normocephalic, atraumatic. Extraocular eye muscles intact. Hearing within normal limits. Moist buccal membranes. Conjunctivae normal. NECK: Without JVD or adenopathy. CHEST: Clear to auscultation. HEART: Regular rate. ABDOMEN: Nontender. MUSCULOSKELETAL: Upper Extremities: Muscle strength judged to be 5/5 for the major muscle groups of the upper extremity without sensory changes. Symmetrical muscle bulk. Low Back Area: The patient has some pain and discomfort in the L5/L4 ____ dermatomal distribution and paraspinous muscles in this area. He has pain and discomfort, which radiates down into the L5-S1 dermatomal distribution. IMPRESSION: 1. Lumbar radiculopathy with pain radiating down the L5-S1 distribution. 2. History of endometriosis. 3. Disk disease with lesion showing pressure on the L5-S1 nerve root dermatomal distribution. RECOMMENDATIONS: We discussed treatment options with the patient. The patient will return to the pain clinic at which time she will undergo an epidural steroid injection. Risks and benefits of the procedure were again reviewed with the patient and they include, but are not limited to infection, increased muscle soreness, headache, bleeding, worsening of pain, nerve trauma, and spinal headache. She will proceed with an injection once her insurance company has granted her permission. <ELECTRONICALLY SIGNED> By: Lili Gama MD 07/17/17 0816 1609 2103 Lili Gama MD /PMT
[2017-06-28 09:23] VITALS: BP 160/76
== END ==
LOC: PAIN 07:19
DX: M54.16 Radiculopathy, lumbar region (principal); M51.87 Other intervertebral disc disorders, lumbosacral region

== ENCOUNTER 2017-09-04 12:14 | Emergency (ER) | payer OTHER ==
[~2017-09-04] VITALS: Ht 162.6 cm; Wt 88.5 kg
--- NOTE | ~2017-09-04 | HC ---
[facility] [place] [address] CONSULTATION Name: OLGA MARVIN Room #: DEP Leena#: [id number] Admission: 09/04/17 Attend Phys: Discharge: 09/04/17 Date of : 74 Report #: [id number] THIS REPORT FOR: //name// CC: Jamie Herring CONSULT WAS REQUESTED BY: Dr.. Lyons to evaluate the patient regarding her abdominal pain. HISTORY OF PRESENT ILLNESS: The patient has a history of chronic abdominal pain and multiple admissions here at [facility] last year for abdominal pain. She has had extensive workup done in the past. Last CT scan was in January, which showed no acute abnormality. There were small low density areas in the uterus suggesting small fibroid and a small right ovarian cyst. She underwent an EGD in the past, which showed gastritis and esophagitis. The patient has chronic back pain and is on MS Contin 15 mg as needed for pain and also oxycodone 1-2 pills a day for back pain. Apparently, she had abdominal cramping and diarrhea 1 hour prior to presenting to the Emergency Room today. She was at work when this happened. 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 It was also associated with nausea and dizziness. No fever or chills. No hematemesis, melena or hematochezia. No vaginal discharge. No dysuria. The patient is very comfortable at present. PAST MEDICAL HISTORY: Significant for chronic abdominal pain, constipation, gastroesophageal reflux disease and sciatica. ALLERGIES: SHE IS ALLERGIC TO KEFLEX AND PENICILLIN. HOME MEDICATIONS: Reviewed, please look at the nursing documentation. SOCIAL HISTORY: No smoking, alcohol abuse or illicit drug abuse. PAST ____ HISTORY: Significant for gallbladder disease. REVIEW OF SYSTEMS: CONSTITUTIONAL: No fever or chills. No headache. No weight loss. No sore throat. CARDIOVASCULAR: No chest pain, ____ or palpitation. RESPIRATORY: No cough or expectoration. GASTROINTESTINAL: No ____ or vomiting. GENITOURINARY: No dysuria or hematuria. NEUROLOGIC: No focal numbness or weakness of the extremities. PSYCHIATRIC: No anxiety and depression. The 12-point review of system is negative other than the positives and negatives dictated in the history of present illness and in the review of system. PHYSICAL EXAMINATION: [address] [address] CONSULTATION Name: OLGA MARVIN Room #: DEP Leena#: [id number] Admission: 09/04/17 Attend Phys: Discharge: 09/04/17 Date of : 74 Report #: [id number] VITAL SIGNS: Blood pressure 153/100, heart rate is 88 per minute and afebrile. GENERAL: The patient is awake and alert, not in acute respiratory distress. EYES: Pupils equal and reactive to light, nonicteric conjunctivae. NECK: Supple, no JVD, no bruit and no lymphadenopathy. CARDIOVASCULAR SYSTEM: S1, S2, ____ S3, no murmur. CHEST: Bilateral air entry present. Clear to auscultation. ABDOMEN: Soft, bowel sounds present, no mass and no organomegaly. There is no guarding. There is no rebound tenderness. Very mild diffuse tenderness noted. The patient is very comfortable while I was palpating her abdomen. PERIPHERY: No pedal edema. No calf tenderness. Dorsalis pedis 1+. NEUROLOGICAL: No gross motor or sensory deficit. LABORATORY DATA: Reviewed. White count is normal at 7.6. Normal hemoglobin and hematocrit. Sodium is 134. BUN and creatinine are within normal limit. AST and ALT are within normal limit. Albumin is 3.3. UA revealed negative nitrite and negative leukocyte. ASSESSMENT: Chronic abdominal pain exacerbation. Possible irritable bowel syndrome, could be related to her ovary. The patient had her last menstrual period 2 weeks ago. 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 I have encouraged the patient to follow up with her special day class teacher. I also advised her to follow up with GI as an outpatient. The patient has been advised to follow up with the PCP in 1 week and return to the ER if she has any increasing abdominal pain, fever or chills. The patient has had multiple admissions last year for a similar complaint. This is her first episode this year. I told her that she does not need any change in her pain medication. I told her to follow up with her pain management MD for chronic back pain. <ELECTRONICALLY SIGNED> By: Tomas Daniels MD 09/05/17 1226 1607 1679 Tomas Daniels MD /nt
[~2017-09-04 12:14] MED LIST changes: -LEVSIN0.125 MG PO; -PEPCID20 MG PO
[2017-09-04 13:07] LABS: ABSOLUTE NEUTROPHILS 4.8 thou/uL (1.4-8.2); BASOPHILS 0.6 % (0.0-2.0); EOSINOPHILS 2.1 % (0.0-3.0); HEMOGLOBIN 13.1 gm/dL (12.0-15.0); LYMPHOCYTES 29.3 % (24.0-44.0); MCH 28.7 pg (26.0-34.0); MCHC 32.7 g/dL (28.0-37.0); MCV 87.7 fL (80.0-100.0); MONOCYTES 5.1 % (1.0-8.0); PLATELET COUNT 253 thou/uL (150-400); POLYS 62.9 % (36.0-66.0); RBC 4.56 mil/uL (4.20-5.00); RDW 13.4 % (10.5-14.5); WBC 7.6 thou/uL (4.0-11.0)
[2017-09-04 13:40] LABS: ANION GAP 3 mmol/L (7-16); BUN 7 mg/dL (7-18); CALCIUM 9.1 mg/dL (8.5-10.1); CHLORIDE 106 mmol/L (98-107); CO2 25 mmol/L (21-32); CREATININE 0.8 mg/dL (0.6-1.0); GLUCOSE 100 mg/dL (74-106); SODIUM 134 mmol/L (136-145)
[2017-09-04 13:42] LABS: POTASSIUM 5.1 mmol/L (3.5-5.1)
[2017-09-04 13:49] LABS: DIRECT BILIRUBIN < 0.1 mg/dL (<0.1-0.3); LIPASE 124 U/L (73-393); SGOT 27 U/L (15-37); SGPT 27 U/L (30-65); TOTAL BILIRUBIN 0.3 mg/dL (<0.1-1.0)
[2017-09-04 13:50] LABS: ALBUMIN 3.3 g/dL (3.4-5.0); TOTAL PROTEIN 7.2 g/dL (6.4-8.2)
[2017-09-04 15:08] LABS: URINE BILIRUBIN NEGATIVE (Negative); URINE BLOOD NEGATIVE (Negative); URINE CLARITY CLEAR; URINE COLOR YELLOW; URINE GLUCOSE-RANDOM* NEGATIVE (Negative); URINE KETONES NEGATIVE (Negative); URINE LEUKOCYTES NEGATIVE (Negative); URINE NITRITE NEGATIVE (Negative); URINE PROTEIN (DIPSTICK) NEGATIVE (Negative); URINE UROBILINOGEN 0.2 E.U./dl (0.2-1.0)
[2017-09-04] MEDS ORDERED: PEPCID20 MG PO (15:42)
[2017-09-04] MEDS ORDERED: ZOFRAN ODT8 MG PO (15:42)
[2017-09-04] MEDS ORDERED: LEVSIN0.125 MG PO (15:42)
== END 2017-09-04 16:20 ==
LOC: ER 12:14
PROVIDERS: Emergency Medicine
DX: R10.84 Generalized abdominal pain (principal); R11.2 Nausea with vomiting, unspecified; R19.7 Diarrhea, unspecified; R42 Dizziness and giddiness; G89.29 Other chronic pain; M54.9 Dorsalgia, unspecified; I10 Essential (primary) hypertension; J45.909 Unspecified asthma, uncomplicated; F41.9 Anxiety disorder, unspecified; F32.9 Major depressive disorder, single episode, unspecified; Z90.89 Acquired absence of other organs; Z88.0 Allergy status to penicillin; Z88.1 Allergy status to other antibiotic agents

== ENCOUNTER → 2017-09-25 | Outpatient (CLI) | payer OTHER ==
[~2017-09-25] VITALS: Ht 162.6 cm; Wt 98.4 kg
[~2017-09-25] MED LIST changes: +LEVSIN0.125 MG PO; +PEPCID20 MG PO
--- NOTE | ~2017-09-25 | HPC ---
[facility] [place] [address] PAIN MANAGEMENT CONSULTATION Name: OLGA MARVIN Room #: REG [facility] Stern#: [id number] Admission: 09/25/17 Attend Phys: Lili Gama MD Discharge: Date of : 74 Report #: [id number] THIS REPORT FOR: //name// CC: Latia Nima Gama DATE OF SERVICE: 09/25/2017 FOLLOWUP COMPLAINT: Here for medications. FOLLOWUP HISTORY: The patient is a 47-year-old female who has been followed in the pain clinic because of chronic lumbar radiculopathy. She finds a little bit epidural steroid injections could be helpful. She does continue to have pain and discomfort and returned today with pain. It involves the L5-S1 dermatomal distribution. Finds that opioid medications continue to be helpful. 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 On those days pain can be more problematic. She has returned today with the hope of undergoing an epidural steroid injection and receiving a new renewal of her medications. She finds other medications continue to be helpful. She has rated her pain as a 7/10. She would like to proceed with another epidural steroid injection. She is aware of the problems with opioid medications, which could include addiction as well as prolonged use can cause less effectiveness secondary to tolerance. She keeps her medications in a guarded area and would like to proceed with an epidural steroid injection today. ALLERGIES: PENICILLIN AND KEFLEX. MEDICATIONS: Famotidine 20 mg b.i.d., Zofran 8 mg p.r.n. nausea and vomiting, Levsin 0.125 mg q.i.d. for colon spasms, Oxycodone 7.5 mg b.i.d., gabapentin 600 mg daily, morphine sulfate 15 mg daily, Naprosyn 500 mg b.i.d., Benadryl 25 mg allergic itching, citalopram HBr 40 mg, Katey 10/20, albuterol inhaler, alprazolam 1 mg, Glucophage 500 mg b.i.d. PAIN CLINIC ASSESSMENT: 1. History of osteoarthritis, low back, L5-S1 area. 2. Height 5 feet 4 inches, weight 217 pounds, BMI is 37.2. 3. Vital signs: Blood pressure 159/104. Pulse 87, respiratory rate 14, room air saturation is 99%. 4. Pain intensity /10. 5. Fall risk. The patient has not fallen in the last 3 months. 6. Blood thinner. The patient is not on a blood thinning medication. 7. History of hypertension. The patient is being treated for hypertension. 8. Opioid therapy greater than 6 weeks. The patient is on an opioid contract and gets her medication from one physician. 9. Risk assessment tool, low for opioids. [address] [address] PAIN MANAGEMENT CONSULTATION Name: MELVA MARVINSHANNENRona Rachel Room #: REG [facility]#: [id number] Admission: 09/25/17 Attend Phys: Lili Gama MD Discharge: Date of : 74 Report #: [id number] 10. Functional assessment tool. 11. Recreational drug use. The patient denies use of recreational drugs. 12. Tobacco: The patient has never smoked tobacco. 13. Alcohol use. The patient drinks alcoholic beverages on occasion. PHYSICAL EXAMINATION: GENERAL: The patient is a well-developed, well-nourished black female. She appears her stated age. She is alert and oriented x 3. Affect is appropriate. Speech is fluent. HEENT: Normocephalic, atraumatic. Extraocular eye muscles intact. mucous membranes are moist. Hearing is within normal limits. NECK: Without adenopathy or JVD. Good range of motion. CHEST: Clear to auscultation without rhonchi or rales. ABDOMEN: Nontender. HEART: Regular rate. S1, S2. MUSCULOSKELETAL: Strength in upper extremity judged to be 5/5 for the major muscle groups without sensory changes and symmetry of the muscle bulk. Lower extremity, the patient has pain and discomfort with pain radiating down to the L4-L5 as well as the L5-S1 dermatomal distribution, more problematic on the left at this juncture. IMPRESSION: 1. Lumbar radiculopathy with pain radiating down the L5-S1 depletion more problematic on the left. 2. History of endometriosis. 3. History of disk disease of the lesion showing pressure on the L5-S1 nerve root. RECOMMENDATIONS: We discussed treatment options with the patient. Risks and benefits of an epidural steroid injection were again discussed. Possible complications of the procedure were reviewed. They are, but not limited to infection, increased muscle soreness, headache, bleeding, worsening of muscle pain, paralysis, spinal headache improvement in pain or no improvement in pain. The patient elects to proceed. PROCEDURE NOTE: The patient was placed in the prone position. Fluoroscopy was used to identify the L5-S1 interspace. Fluoroscopy using anterior, posterior as well as lateral viewing was conducted. The midline area at L5-S1 was identified. This area had been sterilely prepped with Betadine and infiltrated with 0.25% bupivacaine. A 17-gauge Tuohy with loss of resistance technique was used to gain access to the epidural space. There was no CSF, heme or paresthesia. Total of 80 mg Depo-Medrol, 40 mg triamcinolone and 2 mL of 0.25% bupivacaine was injected. The patient tolerated the procedure well. The patient's pain was 7 at the time of discharge. She will follow up in the future [facility] [address] [place] [address] PAIN MANAGEMENT CONSULTATION Name: OLGA MARVIN Room #: REG [facility]#: [id number] Admission: 09/25/17 Attend Phys: Lili Gama MD Discharge: Date of : 74 Report #: [id number] as needed. We would like to thank you for letting us participate in her care. We hope she continues to improve. <ELECTRONICALLY SIGNED> By: Lili Gama MD 10/03/17 0936 1601 1909 Lili Gama MD /YOVANY
[2017-09-25 08:20] VITALS: BP 159/104
== END | disposition home or self-care (01) ==
LOC: PAIN 09-20 06:56
DX: M54.16 Radiculopathy, lumbar region (principal); G89.29 Other chronic pain; I10 Essential (primary) hypertension; K21.9 Gastro-esophageal reflux disease without esophagitis; Z98.890 Other specified postprocedural states; Z87.19 Personal history of other diseases of the digestive system; Z88.0 Allergy status to penicillin; Z79.899 Other long term (current) drug therapy; Z91.040 Latex allergy status; Z79.891 Long term (current) use of opiate analgesic; Z87.42 Personal history of other diseases of the female genital tract

== ENCOUNTER 2017-10-09 12:39 | Inpatient (IN) | payer OTHER ==
[~2017-10-09] VITALS: Ht 162.6 cm; Wt 90.7 kg
--- NOTE | ~2017-10-09 | EKG ---
[address] [address] ELECTROCARDIOGRAM REPORT Name: MARVINOLGA Room #: 417-I [facility] IN [facility]#: [id number] Admission: 10/09/17 Attend Phys: Sonny Rai MD Discharge: Date of : 74 Report #: [id number] THIS REPORT FOR: //name// [facility] ED Test Date: 2017-10-09 Test Time: 13:07:40 Pat Name: OLGA MARVIN Department: Room: Gender: F Digital Printer Operator: : 1970 Requested By: Asha June Order Number: [id number] MD: Thanh Jo Measurements Intervals [place] Rate: 83 P: -15 IA: 146 QRS: 4 QRSD: 89 T: 34 QT: 365 QTc: 429 Interpretive Statements Sinus rhythm No significant abnormality Compared to ECG 04/10/2017 12:10:17 No significant change was found Electronically Signed On 10-10-2017 7:50:52 CDT by Thanh Jo [email or web address] <ELECTRONICALLY SIGNED> By: Thanh Jo MD, [facility] 10/10/17 0750 06 06 Thanh Jo MD, [facility] /EPI
--- NOTE | ~2017-10-09 | HC ---
[facility] [place] [address] CONSULTATION Name: OLGA MARVIN Rachel Room #: 417-I ADM IN .R.#: [id number] Admission: 10/09/17 Attend Phys: Sonny Rai MD Discharge: Date of : 74 Report #: [id number] THIS REPORT FOR: //name// CC: Sonny Herring DATE OF SERVICE: 10/09/2017 HISTORY OF PRESENT ILLNESS: This is a 47-year-old female patient who indicated that she is admitted with headache, blurry vision and some wooziness. This started when she got up this morning and became worse, and she came to Emergency Room. She had similar symptoms about 4 months ago. She does not know what workup she had at that time. She does not believe she had an MRI done anytime. I reviewed the record and it looks like she did have an MRI of the lumbar spine at one time. She says she goes to pain management for that. She describes her symptoms as severe and she does not know anything, which makes it better or worse. REVIEW OF SYSTEMS: Indicates the patient has a history of hypertension. Her blood pressure was high when she came in. She has a history of low back pain. She has a history of asthma. She has a history of benign positional vertigo. She has cystic disease of the kidney. She had a history of leukocytosis. Record indicates she also has a history of pancreatitis. This was a relevant 14-point review of system. PAST MEDICAL HISTORY: Positive for similar episode. FAMILY HISTORY: Negative for early age stroke. SOCIAL HISTORY: She does not smoke. PHYSICAL EXAMINATION: Indicates she is alert. She is oriented. Her speech, concentration, fund of knowledge and memory are at her baseline. Cranial nerve examination 2-12 is unremarkable. Neuromuscular examination is symmetrical. There is no cerebellar sign or papilledema. There is no meningeal sign. She is a moderately built individual. She does not have any dysmorphic features of eyes, ears and face. Her vision and hearing looks adequate. She has no respiratory difficulty or rhonchi on either side. Cardiac examination is unremarkable. Blood pressure is 122/66, respirations 16, pulse is 80, temperature is 98.7. LABORATORY DATA: Indicate a white count of 13.6. She did have a CT scan of the head, which was unremarkable. IMPRESSION: The patient's symptom may have been secondary to hypertension, but we need to exclude intracranial pathology, especially posterior fossa pathology [address] [address] CONSULTATION Name: OLGA MARVIN Room #: 417-I ADM IN [facility]#: [id number] Admission: 10/09/17 Attend Phys: Sonny Rai MD Discharge: Date of : 74 Report #: [id number] need to be excluded. She is also complaining of some nonspecific symptoms in the neck. Her MRI is already ordered and I will add the MRA and a carotid Doppler. RECOMMENDATIONS: 1. MRI. 2. MRA. 3. Carotid Doppler. 4. Await the workup, see what it shows and further management will depend upon the outcome of this testing. Thank you very much for this referral and if you have any questions, please feel free to contact me. We will follow the patient along with you. By: 1639 0334 Jose Bojorquez MD /nt
[2017-10-09 12:41] VITALS: BP 219/140
[2017-10-09 12:55] LABS: ABSOLUTE NEUTROPHILS 8.9 thou/uL (1.4-8.2); BASOPHILS 0.9 % (0.0-2.0); EOSINOPHILS 1.7 % (0.0-3.0); HEMATOCRIT 43.1 % (37.0-47.0); HEMOGLOBIN 14.1 gm/dL (12.0-15.0); LYMPHOCYTES 24.8 % (24.0-44.0); MCH 28.9 pg (26.0-34.0); MCHC 32.6 g/dL (28.0-37.0); MCV 88.4 fL (80.0-100.0); MONOCYTES 7.2 % (1.0-8.0); PLATELET COUNT 361 thou/uL (150-400); POLYS 65.4 % (36.0-66.0); RBC 4.87 mil/uL (4.20-5.00); RDW 14.1 % (10.5-14.5); WBC 13.6 thou/uL (4.0-11.0)
[2017-10-09 13:02] LABS: ANION GAP 5 mmol/L (7-16); BUN 11 mg/dL (7-18); CALCIUM 11.4 mg/dL (8.5-10.1); CHLORIDE 102 mmol/L (98-107); CO2 27 mmol/L (21-32); GLUCOSE 119 mg/dL (74-106); POTASSIUM 3.9 mmol/L (3.5-5.1); SODIUM 134 mmol/L (136-145)
[2017-10-09 13:11] LABS: TROPONIN-I <0.06 ng/mL (<0.06)
[2017-10-09 14:40] VITALS: BP 122/66
[2017-10-09 16:44] VITALS: BP 140/75
[2017-10-09 20:10] VITALS: BP 146/95
[2017-10-10 05:21] VITALS: BP 118/58
[2017-10-10 05:39] LABS: HEMATOCRIT 40.1 % (37.0-47.0); HEMOGLOBIN 12.9 gm/dL (12.0-15.0); MCH 28.6 pg (26.0-34.0); MCHC 32.3 g/dL (28.0-37.0); MCV 88.8 fL (80.0-100.0); RBC 4.52 mil/uL (4.20-5.00); RDW 13.8 % (10.5-14.5); WBC 11.8 thou/uL (4.0-11.0)
[2017-10-10 05:59] LABS: CREATININE 1.1 mg/dL (0.6-1.0); POTASSIUM 4.6 mmol/L (3.5-5.1)
[2017-10-10 06:01] LABS: CALCIUM 8.8 mg/dL (8.5-10.1)
[2017-10-10 07:08] VITALS: BP 139/70
[2017-10-10 16:57] VITALS: BP 139/70
== END 2017-10-10 17:32 | disposition home or self-care (01) | DRG 552 ==
LOC: ER 12:39 → EROBS 14:25 → 4E 14:25
PROVIDERS: Emergency Medicine; Hospitalist
DX: M47.812 Spondylosis without myelopathy or radiculopathy, cervical region (principal); I16.0 Hypertensive urgency; M06.9 Rheumatoid arthritis, unspecified; R73.9 Hyperglycemia, unspecified; G89.29 Other chronic pain; M54.9 Dorsalgia, unspecified; F41.9 Anxiety disorder, unspecified; F32.9 Major depressive disorder, single episode, unspecified; D32.9 Benign neoplasm of meninges, unspecified; Z88.1 Allergy status to other antibiotic agents; Z88.0 Allergy status to penicillin; Z90.49 Acquired absence of other specified parts of digestive tract; Z82.5 Family history of asthma and other chronic lower respiratory diseases; Z80.9 Family history of malignant neoplasm, unspecified; Z83.3 Family history of diabetes mellitus
CPT/HCPCS: 10183

== ENCOUNTER 2017-11-06 15:05 | Emergency (ER) | payer OTHER ==
[~2017-11-06] VITALS: Ht 162.6 cm; Wt 86.2 kg
[2017-11-06 16:42] LABS: ABSOLUTE NEUTROPHILS 5.8 thou/uL (1.4-8.2); BASOPHILS 0.7 % (0.0-2.0); EOSINOPHILS 3.7 % (0.0-3.0); HEMATOCRIT 41.5 % (37.0-47.0); HEMOGLOBIN 13.7 gm/dL (12.0-15.0); LYMPHOCYTES 29.7 % (24.0-44.0); MCH 28.9 pg (26.0-34.0); MCHC 32.9 g/dL (28.0-37.0); MCV 87.8 fL (80.0-100.0); MONOCYTES 8.2 % (1.0-8.0); PLATELET COUNT 303 thou/uL (150-400); POLYS 57.7 % (36.0-66.0); RBC 4.72 mil/uL (4.20-5.00); RDW 13.9 % (10.5-14.5); WBC 10.1 thou/uL (4.0-11.0)
[2017-11-06 16:49] LABS: CALCIUM 9.5 mg/dL (8.5-10.1); POTASSIUM 3.6 mmol/L (3.5-5.1)
[2017-11-06 16:54] LABS: ALBUMIN 3.8 g/dL (3.4-5.0); TOTAL BILIRUBIN 0.3 mg/dL (<0.1-1.0); TOTAL PROTEIN 8.3 g/dL (6.4-8.2)
[2017-11-06] MEDS ORDERED: OXYCODONE-APAP1 EAC6 PO (18:02)
[2017-11-06] MEDS ORDERED: ENDOCET 10-3251 EACH PO (18:02)
[2017-11-06] MEDS ORDERED: PREDNISONE 20 M20 MG PO (18:03)
== END 2017-11-06 18:48 | disposition home or self-care (01) ==
LOC: ER 15:05
PROVIDERS: Emergency Medicine
DX: R51 Headache (principal); R70.0 Elevated erythrocyte sedimentation rate; I10 Essential (primary) hypertension; M54.9 Dorsalgia, unspecified; G89.29 Other chronic pain; J45.909 Unspecified asthma, uncomplicated; F41.9 Anxiety disorder, unspecified; F32.9 Major depressive disorder, single episode, unspecified; Z90.49 Acquired absence of other specified parts of digestive tract; Z88.0 Allergy status to penicillin; Z88.1 Allergy status to other antibiotic agents

== ENCOUNTER 2017-11-14 05:36 | Day surgery (SDC) | payer OTHER ==
[~2017-11-14] VITALS: Ht 162.6 cm; Wt 86.2 kg
--- NOTE | ~2017-11-14 | O ---
[facility] [place] [address] OPERATIVE REPORT Name: OLGA MARVIN Room #: [facility]P [facility]#: [id number] Admission: 11/14/17 Attend Phys: Tereso Beckford MD, F Discharge: 11/14/17 Date of : 74 Report #: [id number] THIS REPORT FOR: //name// CC: Latia Herring Tereso Beckford DATE OF SERVICE: 11/14/2017 SURGEON: Tereso Beckford MD. CUSTOMER SUCCESS SPECIALIST: None. PREOPERATIVE DIAGNOSES: 1. Intractable headaches, left greater than right. 2. Chronic back pain. POSTOPERATIVE DIAGNOSES: 1. Intractable headaches, left greater than right. 2. Chronic back pain. PROCEDURE: Left temporal artery biopsy with Doppler guidance. ANESTHESIA: Monitored anesthetic care and local anesthetic. ESTIMATED BLOOD LOSS: 2 mL. SPECIMEN: Left superficial temporal artery. COMPLICATIONS: None appreciated. INDICATIONS FOR PROCEDURE: This is a 47-year-old female patient of Latia Herring who was seen in the [facility] with diaphoresis and intractable headaches as well as blurred vision and dizziness. The patient was told she had bulging disks, nodes on the back of her head, and a calcification in her anterior brain. She was referred to Neurology. She was found to have an elevated erythrocyte sedimentation rate. Temporal artery biopsy has been requested. The patient notes worsened, more intense headache on her left side compared to her right. She was placed on prednisone and has had some improvement of her symptoms, whereby her headaches are more intermittent in nature rather than constant. She presents today for left superficial temporal artery biopsy. DESCRIPTION OF PROCEDURE IN DETAIL: After the risks, benefits, and expectations of the operation were discussed in detail with the patient, informed consent was obtained. The patient was identified in the preoperative holding area. She was given IV antibiotics as documented in the chart in line with [facility] metrics. The [address] [address] OPERATIVE REPORT Name: MARVINOLGA Room #: [facility]#: [id number] Admission: 11/14/17 Attend Phys: Tereso Beckford MD, F Discharge: 11/14/17 Date of : 74 Report #: [id number] patient was then given IV sedation and she was intubated without incident. The patient was then given IV sedation. When adequately sedated, her left religion was prepped and draped in standard sterile fashion after identifying the left superficial temporal artery with the handheld Doppler. A biphasic signal was able to be obtained. This had been marked out. The skin was shaved. The skin was then prepped with ChloraPrep. After ensuring the correct patient and procedure, local anesthetic was infiltrated into the skin and subcutaneous tissue. A sharp #15 blade scalpel was used to make the incision. Bleeding points were made hemostatic with electrocautery judiciously. Using blunt dissection and the tenotomy scissors, the subcutaneous tissue was dissected down to vessel wall. The handheld Doppler device was used throughout the operation to ensure correct anatomy. The artery itself was quite small and somewhat thickened. A small branch was clipped off with a small Hemoclip. A 2.2-cm long segment of left superficial temporal artery had been dissected. The vessel was clipped proximally and distally. Vessel loops were placed around the artery to help with retraction. 4-0 Nurolon sutures were then tied inside the clips. The vessel was then divided leaving the Hemoclips in place with good hemostasis. The artery was sent for specimen. The handheld Doppler was then used to ensure no further arterial signal within the tissue (there was no signal). Bleeding points were again made hemostatic. The wound was then closed with interrupted 4-0 Vicryl sutures to approximate the subdermal tissue. A running 4-0 Monocryl subcuticular suture and Dermabond were then used to close the skin. The patient tolerated the procedure well. She was awakened and taken to the recovery room in stable condition with no apparent intraoperative complications. <ELECTRONICALLY SIGNED> By: Tereso Beckford MD, FACS 11/18/17 2303 1819 1854 Tereso Beckford MD, FACS /nt
--- NOTE | ~2017-11-14 | PATH ---
[facility] [address] [place] [address] PATHOLOGY RPT PROCEDURE Name: OLGA MARVIN Room #: DEP [facility].#: [id number] Admission: 11/14/17 Date of : 74 Discharge: 11/14/17 Report #: [id number] Path Case #: [id number] [facility] Accession Number: [id number] . 01 Material submitted: . SUPERFICIAL LEFT TEMPORAL ARTERY BIOPSY . 01 Clinical history: . Headache . 02 Diagnosis: Artery, temporal artery, biopsy: - Negative for arteritis. - No significant diagnostic abnormalities present. (IUV/db; 11/15/17) LBQ/11/15/2017 . 02 Electronically signed: . Rohini Levi MD, Pathologist NPI- [id number] . 01 Gross description: . The specimen is received in formalin, labeled "Marvin, [place] and left superficial temporal artery biopsy", consist of a martinez-pink artery measuring 3.0 cm in length with an average 0.1 cm diameter. The specimen is entirely submitted in toto in A1. . . ([facility]; 11/14/2017) /[facility]S . 02 Pathologist provided ICD-10: R51 . 02 CPT . 857045 Performed at: [address], [place] [id number] MD Melvin Roger MD Phone: [phone] Performed at: [address] [id number] MD Rohini Levi MD Phone: [phone]
[~2017-11-14 05:36] MED LIST changes: +ENDOCET 10-3251 EACH PO; +GABAPENTIN600 M1 PO; +PERCOCET 10-321 EACH PO; -PROVENTIL HFA6.7 G1; +PROVENTIL HFA6.7 G1 INH; +TRIAMTERENE/HCT1 CA1 PO; +WELLBUTRIN SR150 MG PO
[2017-11-14 06:42] VITALS: BP 142/97
[2017-11-14 06:56] LABS: HEMATOCRIT 36.8 % (37.0-47.0); HEMOGLOBIN 11.9 gm/dL (12.0-15.0)
[2017-11-14 07:06] LABS: CALCIUM 8.1 mg/dL (8.5-10.1); POTASSIUM 3.7 mmol/L (3.5-5.1)
[2017-11-14] MEDS ORDERED: PERCOCET 10-321 EACH PO (08:41)
== END 2017-11-14 09:35 | disposition home or self-care (01) ==
LOC: OR 05:36 → TBA 05:36 → OR 06:44
PROVIDERS: Surgery
DX: G44.89 Other headache syndrome (principal); R61 Generalized hyperhidrosis; G89.29 Other chronic pain; J45.909 Unspecified asthma, uncomplicated; F41.9 Anxiety disorder, unspecified; F32.9 Major depressive disorder, single episode, unspecified; I10 Essential (primary) hypertension; E11.9 Type 2 diabetes mellitus without complications; K85.90 Acute pancreatitis without necrosis or infection, unspecified; M06.9 Rheumatoid arthritis, unspecified; E66.9 Obesity, unspecified; Z79.899 Other long term (current) drug therapy; Z88.0 Allergy status to penicillin; Z88.8 Allergy status to other drugs, medicaments and biological substances; Z90.49 Acquired absence of other specified parts of digestive tract; Z98.890 Other specified postprocedural states; Z79.84 Long term (current) use of oral hypoglycemic drugs; Z98.51 Tubal ligation status; Z86.73 Personal history of transient ischemic attack (TIA), and cerebral infarction without residual deficits; Z68.32 Body mass index [BMI] 32.0-32.9, adult
CPT/HCPCS: 50010; 50101; 50386; 50403; 54118; 56524; 62110; 62850; 70005

== ENCOUNTER 2018-01-29 06:20 | Emergency (ER) | payer OTHER ==
[~2018-01-29] VITALS: Ht 162.6 cm; Wt 94.8 kg
[~2018-01-29 06:20] MED LIST changes: +IMITREX 25 MG T25 M1 PO; +NAPROSYN500 M1 PO; +TOPAMAX50 MG PO; +ZOFRAN8 MG PO
== END 2018-01-29 07:50 | disposition home or self-care (01) ==
LOC: ER 06:20
DX: S16.1XXA Strain of muscle, fascia and tendon at neck level, initial encounter (principal); M54.5 Low back pain; G89.29 Other chronic pain; I10 Essential (primary) hypertension; G43.909 Migraine, unspecified, not intractable, without status migrainosus; J45.909 Unspecified asthma, uncomplicated; E28.2 Polycystic ovarian syndrome; F32.9 Major depressive disorder, single episode, unspecified; F41.9 Anxiety disorder, unspecified; E11.9 Type 2 diabetes mellitus without complications; Z86.73 Personal history of transient ischemic attack (TIA), and cerebral infarction without residual deficits; Z88.1 Allergy status to other antibiotic agents; Z90.13 Acquired absence of bilateral breasts and nipples; Z88.0 Allergy status to penicillin; Z90.49 Acquired absence of other specified parts of digestive tract; V49.40XA Driver injured in collision with unspecified motor vehicles in traffic accident, initial encounter; Y93.89 Activity, other specified; Y92.410 Unspecified street and highway as the place of occurrence of the external cause; Y99.8 Other external cause status

== ENCOUNTER 2018-02-16 09:52 | Emergency (ER) | payer OTHER ==
[~2018-02-16] VITALS: Ht 162.6 cm; Wt 93.0 kg
[2018-02-16] MEDS ORDERED: BUTALB-APAP-CA1 EACH PO (11:09)
[2018-02-16 11:26] VITALS: BP 147/85
== END 2018-02-16 11:42 | disposition home or self-care (01) ==
LOC: ER 09:52
DX: G43.909 Migraine, unspecified, not intractable, without status migrainosus (principal); Z88.1 Allergy status to other antibiotic agents; Z88.0 Allergy status to penicillin; Z90.49 Acquired absence of other specified parts of digestive tract; M54.9 Dorsalgia, unspecified; G89.29 Other chronic pain; I10 Essential (primary) hypertension; J45.909 Unspecified asthma, uncomplicated; E28.2 Polycystic ovarian syndrome; F32.9 Major depressive disorder, single episode, unspecified; F41.9 Anxiety disorder, unspecified; Z90.13 Acquired absence of bilateral breasts and nipples; E11.9 Type 2 diabetes mellitus without complications; Z86.73 Personal history of transient ischemic attack (TIA), and cerebral infarction without residual deficits

== ENCOUNTER → 2018-03-12 | Outpatient (CLI) | payer OTHER ==
[~2018-03-12] VITALS: Ht 157.5 cm; Wt 94.9 kg
[~2018-03-12] MED LIST changes: +BUTALB-APAP-CA1 EACH PO
[2018-03-12 09:08] VITALS: BP 145/102
== END ==
LOC: PAIN 03-11 10:37
DX: M54.5 Low back pain (principal); G89.29 Other chronic pain; M25.562 Pain in left knee; M25.552 Pain in left hip; Z79.899 Other long term (current) drug therapy

== ENCOUNTER 2018-03-30 12:42 | Emergency (ER) | payer OTHER ==
[~2018-03-30] VITALS: Ht 162.6 cm; Wt 93.0 kg
[2018-03-30] MEDS ORDERED: REGLAN 10 MG TA10 MG PO (14:47)
[2018-03-30 15:25] VITALS: BP 171/62
== END 2018-03-30 15:26 | disposition home or self-care (01) ==
LOC: ER 12:42
DX: G43.909 Migraine, unspecified, not intractable, without status migrainosus (principal); G89.29 Other chronic pain; E11.9 Type 2 diabetes mellitus without complications; M54.9 Dorsalgia, unspecified; I10 Essential (primary) hypertension; J45.909 Unspecified asthma, uncomplicated; E28.2 Polycystic ovarian syndrome; F32.9 Major depressive disorder, single episode, unspecified; F41.9 Anxiety disorder, unspecified; Z90.13 Acquired absence of bilateral breasts and nipples; Z86.73 Personal history of transient ischemic attack (TIA), and cerebral infarction without residual deficits; Z88.1 Allergy status to other antibiotic agents; Z88.0 Allergy status to penicillin; Z90.49 Acquired absence of other specified parts of digestive tract

== ENCOUNTER 2018-05-26 11:28 | Emergency (ER) | payer OTHER ==
[~2018-05-26] VITALS: Ht 162.6 cm; Wt 93.0 kg
[2018-05-26 12:23] LABS: CALCIUM 8.8 mg/dL (8.5-10.1); CREATININE 0.8 mg/dL (0.6-1.0); POTASSIUM 4.2 mmol/L (3.5-5.1)
[2018-05-26 12:27] LABS: ABSOLUTE NEUTROPHILS 5.5 thou/uL (1.4-8.2); BASOPHILS 1.2 % (0.0-2.0); EOSINOPHILS 2.1 % (0.0-3.0); HEMATOCRIT 34.6 % (37.0-47.0); HEMOGLOBIN 11.3 gm/dL (12.0-15.0); LYMPHOCYTES 32.1 % (24.0-44.0); MCHC 32.6 g/dL (28.0-37.0); MCV 88.9 fL (80.0-100.0); MONOCYTES 6.2 % (1.0-8.0); PLATELET COUNT 330 thou/uL (150-400); POLYS 58.4 % (36.0-66.0); RBC 3.89 mil/uL (4.20-5.00); RDW 14.6 % (10.5-14.5); WBC 9.4 thou/uL (4.0-11.0)
[2018-05-26 18:13] VITALS: BP 141/84
== END 2018-05-26 18:14 | disposition home or self-care (01) ==
LOC: ER 11:28
PROVIDERS: Emergency Medicine
DX: G43.909 Migraine, unspecified, not intractable, without status migrainosus (principal); R42 Dizziness and giddiness; M54.9 Dorsalgia, unspecified; G89.29 Other chronic pain; I10 Essential (primary) hypertension; J45.909 Unspecified asthma, uncomplicated; F32.9 Major depressive disorder, single episode, unspecified; F41.9 Anxiety disorder, unspecified; Z90.49 Acquired absence of other specified parts of digestive tract; Z88.0 Allergy status to penicillin; Z88.1 Allergy status to other antibiotic agents

== ENCOUNTER → 2018-06-13 | Outpatient (CLI) | payer OTHER ==
[~2018-06-13] VITALS: Ht 162.6 cm; Wt 95.3 kg
[2018-06-13 09:14] VITALS: BP 161/96
--- NOTE | 2018-06-13 09:16 | NUR ---
Pain Clinic Assessment: 1. History of Osteoarthritis: Not Applicable History of Rheumatoid Arthritis: Not Applicable 2. Height: 5 ft. 4 in. 162.6 cm. Weight: 210.0 lb. oz. 95.256 kg. Patient's BMI: 36.0 3. Vital Signs: BP: 161/96 Pulse: 89 Resp: 16 Temp: 02 Sat: 100 ECG Mon: 4. Pain Intensity: 7 5. Fall Risk: Dizziness: N Needs help standing or walking: N Fallen in the last 3 months: N Fall risk comments: 6. Patient on Blood Thinner: None 7. History of Hypertension: Y 8. Opioid Therapy greater than 6 weeks: Y Opiate Contract Signed: 9. Risk Assessment Tool Provided: low-0 10. Functional Assessment Tool: 55/70 11. Recreational Drug Use: Never Drug Type: Tobacco Use: Never Smoker Tobacco Type: Amount or Packs/day: How Many Years: Alcohol Use: Yes Frequency: Weekly Quant: 2
== END ==
LOC: PAIN 06:47
DX: M54.5 Low back pain (principal); M25.562 Pain in left knee; M25.552 Pain in left hip; G89.29 Other chronic pain; Z79.899 Other long term (current) drug therapy; Z72.89 Other problems related to lifestyle

== ENCOUNTER 2018-06-18 12:04 | Emergency (ER) | payer OTHER ==
[~2018-06-18] VITALS: Ht 162.6 cm; Wt 92.1 kg
[2018-06-18 13:13] VITALS: BP 155/92
== END 2018-06-18 13:14 | disposition home or self-care (01) ==
LOC: ER 12:04
DX: J02.9 Acute pharyngitis, unspecified (principal); B34.9 Viral infection, unspecified; M54.9 Dorsalgia, unspecified; G89.29 Other chronic pain; I10 Essential (primary) hypertension; J45.909 Unspecified asthma, uncomplicated; E28.2 Polycystic ovarian syndrome; G43.909 Migraine, unspecified, not intractable, without status migrainosus; E11.9 Type 2 diabetes mellitus without complications; F41.9 Anxiety disorder, unspecified; F32.9 Major depressive disorder, single episode, unspecified; Z90.13 Acquired absence of bilateral breasts and nipples; Z86.73 Personal history of transient ischemic attack (TIA), and cerebral infarction without residual deficits; Z88.0 Allergy status to penicillin; Z88.1 Allergy status to other antibiotic agents; Z90.49 Acquired absence of other specified parts of digestive tract

== ENCOUNTER 2018-08-03 09:46 | Emergency (ER) | payer OTHER ==
[~2018-08-03] VITALS: Ht 162.6 cm; Wt 92.1 kg
[2018-08-03 11:23] LABS: URINE BLOOD NEGATIVE (Negative); URINE CLARITY CLEAR; URINE COLOR YELLOW; URINE GLUCOSE-RANDOM* NEGATIVE (Negative); URINE KETONES 1+ (Negative); URINE LEUKOCYTES-REFLEX NEGATIVE (Negative); URINE NITRITE-REFLEX NEGATIVE (Negative); URINE PROTEIN (DIPSTICK) NEGATIVE (Negative); URINE SPECIFIC GRAVITY >= 1.030 (1.005-1.035)
[2018-08-03 11:26] LABS: ICTOTEST (BILI CONFIRMATORY) Negative (Negative); URINE BILIRUBIN NEGATIVE (Negative)
[2018-08-03] MEDS ORDERED: ATIVAN0.5 MG PO (11:46)
[2018-08-03] MEDS ORDERED: IBUPROFEN 600600 M1 PO (11:58)
[2018-08-03 12:19] LABS: ABSOLUTE NEUTROPHILS 5.1 thou/uL (1.4-8.2); BASOPHILS 0.9 % (0.0-2.0); EOSINOPHILS 2.7 % (0.0-3.0); HEMATOCRIT 36.8 % (37.0-47.0); LYMPHOCYTES 26.1 % (24.0-44.0); MCH 29.5 pg (26.0-34.0); MCHC 32.6 g/dL (28.0-37.0); MCV 90.4 fL (80.0-100.0); MONOCYTES 8.4 % (1.0-8.0); PLATELET COUNT 310 thou/uL (150-400); POLYS 61.9 % (36.0-66.0); RBC 4.07 mil/uL (4.20-5.00); WBC 8.3 thou/uL (4.0-11.0)
[2018-08-03 12:20] LABS: AMP/METHAMP POSITIVE (Negative); BARBITURATES Negative (Negative); BENZODIAZEPINES POSITIVE (Negative); COCAINE POSITIVE (Negative); METHADONE Negative (Negative); OPIATES POSITIVE (Negative); PCP Negative (Negative)
[2018-08-03 12:27] LABS: ANION GAP 13 mmol/L (7-16); BUN 11 mg/dL (7-18); CALCIUM 9.2 mg/dL (8.5-10.1); CHLORIDE 102 mmol/L (98-107); CO2 24 mmol/L (21-32); CREATININE 0.9 mg/dL (0.6-1.0); GLUCOSE 105 mg/dL (74-106); POTASSIUM 3.4 mmol/L (3.5-5.1); SODIUM 139 mmol/L (136-145)
[2018-08-03 12:33] LABS: ALBUMIN 3.8 g/dL (3.4-5.0); SALICYLATE < 2.8 mg/dL (2.8-20.0); SGOT 20 U/L (15-37); SGPT 27 U/L (30-65); TOTAL BILIRUBIN 0.4 mg/dL (<0.1-1.0); TOTAL PROTEIN 7.8 g/dL (6.4-8.2)
[2018-08-03 18:56] VITALS: BP 144/83
== END 2018-08-03 19:26 | disposition short-term general hospital (02) ==
LOC: ER 09:46
PROVIDERS: Physician Assistant
DX: F32.9 Major depressive disorder, single episode, unspecified (principal); M54.5 Low back pain; R45.851 Suicidal ideations; Z20.2 Contact with and (suspected) exposure to infections with a predominantly sexual mode of transmission; F41.9 Anxiety disorder, unspecified; E11.9 Type 2 diabetes mellitus without complications; G43.909 Migraine, unspecified, not intractable, without status migrainosus; G89.29 Other chronic pain; J45.909 Unspecified asthma, uncomplicated; I10 Essential (primary) hypertension; Z88.1 Allergy status to other antibiotic agents; Z88.0 Allergy status to penicillin; Z90.49 Acquired absence of other specified parts of digestive tract; Z98.890 Other specified postprocedural states; Z86.73 Personal history of transient ischemic attack (TIA), and cerebral infarction without residual deficits; Y08.89XA Assault by other specified means, initial encounter; Y93.89 Activity, other specified; Y92.89 Other specified places as the place of occurrence of the external cause; Y99.8 Other external cause status

== ENCOUNTER → 2018-08-25 | Outpatient (CLI) | payer OTHER ==
[~2018-08-25] MED LIST changes: +ATIVAN0.5 MG PO
== END ==
LOC: BC 09:57
DX: Z12.31 Encounter for screening mammogram for malignant neoplasm of breast (principal)

== ENCOUNTER → 2018-09-12 | Outpatient (CLI) | payer OTHER ==
[~2018-09-12] VITALS: Ht 162.6 cm; Wt 93.6 kg
[~2018-09-12] MED LIST changes: +CYMBALTA60 MG PO; +TRAZODONE HCL50 MG PO; -WELLBUTRIN SR150 MG PO; +WELLBUTRIN XL300 MG PO
[2018-09-12 10:57] VITALS: BP 163/103
--- NOTE | 2018-09-12 11:19 | NUR ---
Pain Clinic Assessment: 1. History of Osteoarthritis: DENIES History of Rheumatoid Arthritis: HANDS AND KNEES PER PT 2. Height: 5 ft. 4 in. 162.6 cm. Weight: 206.4 lb. oz. 93.623 kg. Patient's BMI: 35.4 3. Vital Signs: BP: 163/103 Pulse: 87 Resp: 16 Temp: 02 Sat: 100 ECG Mon: 4. Pain Intensity: 8 5. Fall Risk: Dizziness: N Needs help standing or walking: N Fallen in the last 3 months: N Fall risk comments: 6. Patient on Blood Thinner: None 7. History of Hypertension: Y 8. Opioid Therapy greater than 6 weeks: Y Opiate Contract Signed: 07/07/13 9. Risk Assessment Tool Provided: low-0 10. Functional Assessment Tool: / 11. Recreational Drug Use: Never Drug Type: Tobacco Use: Never Smoker Tobacco Type: Amount or Packs/day: How Many Years: Alcohol Use: Yes Frequency: Special Occasions Quant:
--- NOTE | 2018-09-17 08:16 | HPC ---
[facility] [place] [address] [place] [address] PAIN MANAGEMENT CONSULTATION Name: OLGA MARVIN Rachel Room #: REG [facility]#: [id number] Admission: 09/12/18 ������������������ Attend Phys: Lili Gama MD Discharge: ������������������ Date of : 74 Report #: [id number] THIS REPORT FOR: //name// CC: Be Feliciano DATE OF SERVICE: 09/12/2018 PRIMARY CARE PHYSICIAN: Be Brown DO and MARICARMEN Ceja FOLLOWUP HISTORY: "Pain has increased and I would like to get an epidural injection as well as to have my medication renewed." HISTORY: The patient is a 48-year-old female who has been followed in the pain clinic. She has pain in the mid back area. She is experiencing increasing discomfort over the last few weeks. She has undergone epidural steroid injections in the past. She has pain that is in the lower portion of her back radiating down in the posterior portion of her legs. Epidural steroid injections have been beneficial. She rates her pain today as 8/10. Notes that the pain is worse when she is standing. The patient is quite active in her job. She has been treated with medical management. The pain continues to be less controlled at this juncture by her current medical regimen. Has pain in the low back or portion of her back. Left leg down to the knee, left hip and groin area are all involved. Describes the pain as shooting, sharp, aching and stabbing. Pain is exacerbated with standing, bending movement and has noted a particular increase in pain and discomfort since the weather pattern has been quite volatile. Has had some improvement with massage as well as continues to note improvement with her medications. ALLERGIES: PENICILLIN, KEFLEX. CURRENT MEDICATIONS: Pepcid 20 mg p.o. b.i.d., trazodone 50 mg at bedtime, Cymbalta 60 mg, Percocet 7.5 mg 1 p.o. b.i.d., Zofran 8 mg p.r.n. nausea, Naprosyn 500 mg b.i.d., morphine sulfate 15 mg daily, Gralise 600 mg 2 pills in the evening. Imitrex 25 mg, Topamax 50 mg, Wellbutrin-XL 300 mg, Katey 10/20 mg tablets blood pressure, Proventil albuterol inhaler t.i.d. 1 puff, alprazolam 1 mg p.r.n. anxiety, metformin 500 mg b.i.d. PAIN CLINIC ASSESSMENT/PQRS: 1. History of osteoarthritis. The patient has some low back pain with pain in the L5-S1 area. The patient is not being treated for rheumatoid arthritis. 2. Height 5 feet 4 inches, weight 206 pounds, BMI 35. 3. VITAL SIGNS: Blood pressure 163/103, pulse 87, respiratory rate 16, room air saturation is 100. The patient's blood pressure has been elevated at this juncture and in the past. We counseled the patient regarding the side effects [address] [address] PAIN MANAGEMENT CONSULTATION Name: OLGA MARVIN [facility] [id number] Admission: 09/12/18 ������������������ Attend Phys: Lili Gama MD Discharge: ������������������ Date of : 74 Report #: [id number] of hypertension, which could be stroke, heart or renal. 4. Pain intensity 11/22. 5. Fall risk. The patient has not fallen in the last 3 months. 6. Blood thinner. The patient is not on a blood thinning medication. 7. Hypertension. The patient is being treated for hypertension. 8. Opioids greater than 6 weeks. The patient received medication through the pain clinic for pain control. 9. Risk assessment tool, low for opioid use. 10. Functional assessment tool 55/70. 11. Recreational drug use. The patient denies. 12. Tobacco: The patient has never smoked. 13. Alcohol: The patient occasionally drinks alcoholic beverages. PHYSICAL EXAMINATION: GENERAL: The patient is a well-developed, well-nourished black female, appears her stated age. She is alert and oriented x 3. Her affect is appropriate. Speech is fluent. HEENT: Normocephalic, atraumatic. Extraocular eye muscles are intact. Sclerae nonicteric. Mucous membranes are moist. NECK: Without adenopathy or JVD. HEART: Regular rate. CHEST: Clear to auscultation without rhonchi or rales. ABDOMEN: Nontender. MUSCULOSKELETAL: Without significant scoliosis, kyphosis or lordosis. Upper extremity muscle strength is judged to be 5-/5 for the major muscle groups in the upper extremity. In the L4-L5 and L5-S1 dermatomal distribution, the patient has some increased pain. She has muscle strength judged to be 5-/5 for the major muscle groups in the lower extremity. The patient has some soreness in the left hip area. Palpation in the area of the greater trochanteric area reproduces a significant amount of pain and discomfort. IMPRESSION: 1. Lumbar radiculopathy in the L5-S1 dermatomal distribution. 2. History of endometriosis. 3. History of disk disease with lesion showing pressure at the L5-S1 nerve area. RECOMMENDATIONS: We discussed treatment options with the patient. Risks and benefits of an epidural steroid injection were again discussed. They include but are not limited to infection, worsening pain, no improvement in pain, bleeding, nerve damage, spinal headache. The patient would like to proceed with an epidural injection. She is aware that her insurance requires precertification at this juncture. We will phone her insurance company and forward the information. Hopefully, within a short amount of time she will be able to return to the pain clinic at which time she will then undergo an epidural steroid injection to help quell and decrease the pain and discomfort [address] [address] PAIN MANAGEMENT CONSULTATION Name: OLGA MARVIN Room #: REG [facility]#: [id number] Admission: 09/12/18 ������������������ Attend Phys: Lili Gama MD Discharge: ������������������ Date of : 74 Report #: [id number] which she is experiencing. The patient has been given a script for her medications. She will continue with her opioid medications of OxyContin 7.5 mg one p.o. b.i.d., morphine extended release 15 mg 1 p.o. daily, Gralise 600 mg 1 p.o. b.i.d., Naprosyn 500 mg, total of 20 tablets b.i.d. The patient will monitor her stomach condition. If she notes some GI upset, she will stop taking the ibuprofen. Zofran 8 mg 1 p.o. q.8 hours p.r.n., total of 10 tablets have been dispensed. The patient will call us if she has any concerns. We would like to thank you for letting us participate in her care. We hope she continues to improve. ��������������������������������������������� <ELECTRONICALLY SIGNED> ���������������������������������������� By: Lili Gama MD ��������������������������������������������� 09/17/18 0816 1650 0459 Lili Gama MD /[facility]
== END ==
LOC: PAIN 06:49
DX: M54.16 Radiculopathy, lumbar region (principal); Z79.899 Other long term (current) drug therapy; Z87.42 Personal history of other diseases of the female genital tract

== ENCOUNTER 2018-10-21 13:23 | Emergency (ER) | payer OTHER ==
[~2018-10-21] VITALS: Ht 162.6 cm; Wt 93.4 kg
[2018-10-21 16:01] VITALS: BP 154/97
--- NOTE | 2018-10-21 16:31 | EKG ---
[place] [address] [facility] [place] [address] ELECTROCARDIOGRAM REPORT Name: MARVINOLGA Room #: [facility]#: [id number] ������������������ Admission: 10/21/18 ������������������ Attend Phys: Discharge: ������������������ Date of : 74 Report #: [id number] ����������������������������������������������������������������� [id number] THIS REPORT FOR: //name// [facility] ED Test Date: 2018-10-21 Test Time: 14:10:43 Pat Name: OLGA MARVIN Department: Room: Gender: F Busboy: ROLAND : 1970 Requested By: Reymundo Mccoy Order Number: [id number] MD: Thanh Jo Measurements Intervals [place] Rate: 74 P: -30 PA: 132 QRS: -30 QRSD: 74 T: QT: 476 QTc: 522 Interpretive Statements Incomplete electrocardiogram, recommend repeat tracing Sinus rhythm RSR' in V1 or V2, probably normal variant Inferior infarct, old Nonspecific T wave abnormality No previous ECGs available for comparison Electronically Signed On 10-21-2018 16:31:33 CDT by Thanh Jo [email or web address] ��������������������������������������������� <ELECTRONICALLY SIGNED> ���������������������������������������� By: Thanh Jo MD, [facility] ��������������������������������������������� 10/21/18 1631 1410 1410 Thanh Jo MD, [facility] /EPI
== END 2018-10-21 16:01 | disposition home or self-care (01) ==
LOC: ER 13:23
DX: G43.909 Migraine, unspecified, not intractable, without status migrainosus (principal); F32.9 Major depressive disorder, single episode, unspecified; F41.9 Anxiety disorder, unspecified; E11.9 Type 2 diabetes mellitus without complications; G89.29 Other chronic pain; M54.9 Dorsalgia, unspecified; I10 Essential (primary) hypertension; J45.909 Unspecified asthma, uncomplicated; Z98.51 Tubal ligation status; Z90.49 Acquired absence of other specified parts of digestive tract; Z86.73 Personal history of transient ischemic attack (TIA), and cerebral infarction without residual deficits; Z88.0 Allergy status to penicillin; Z88.1 Allergy status to other antibiotic agents

== ENCOUNTER 2018-11-29 14:19 | Emergency (ER) | payer OTHER ==
[~2018-11-29] VITALS: Ht 162.6 cm; Wt 93.0 kg
[2018-11-29 15:12] VITALS: BP 207/122
[2018-11-29] MEDS ORDERED: PREDNISONE 20 M20 MG PO (17:30)
[2018-11-29] MEDS ORDERED: ZYRTEC10 M2 PO (17:30)
[2018-11-29] MEDS ORDERED: ELIMITE60 GM TOP (17:30)
== END 2018-11-29 17:34 | disposition home or self-care (01) ==
LOC: ER 14:19
DX: S30.861A Insect bite (nonvenomous) of abdominal wall, initial encounter (principal); S80.862A Insect bite (nonvenomous), left lower leg, initial encounter; S40.862A Insect bite (nonvenomous) of left upper arm, initial encounter; S40.861A Insect bite (nonvenomous) of right upper arm, initial encounter; S00.462A Insect bite (nonvenomous) of left ear, initial encounter; S00.461A Insect bite (nonvenomous) of right ear, initial encounter; S20.369A Insect bite (nonvenomous) of unspecified front wall of thorax, initial encounter; M54.9 Dorsalgia, unspecified; G89.29 Other chronic pain; I10 Essential (primary) hypertension; J45.909 Unspecified asthma, uncomplicated; F32.9 Major depressive disorder, single episode, unspecified; F41.9 Anxiety disorder, unspecified; G43.909 Migraine, unspecified, not intractable, without status migrainosus; E11.9 Type 2 diabetes mellitus without complications; Z86.73 Personal history of transient ischemic attack (TIA), and cerebral infarction without residual deficits; Z90.13 Acquired absence of bilateral breasts and nipples; Z90.49 Acquired absence of other specified parts of digestive tract; Z88.1 Allergy status to other antibiotic agents; Z88.0 Allergy status to penicillin; W57.XXXA Bitten or stung by nonvenomous insect and other nonvenomous arthropods, initial encounter; Y92.89 Other specified places as the place of occurrence of the external cause; Y93.89 Activity, other specified; Y99.8 Other external cause status

== ENCOUNTER → 2018-12-10 | Outpatient (CLI) | payer OTHER ==
[~2018-12-10] VITALS: Ht 162.6 cm; Wt 96.5 kg
[~2018-12-10] MED LIST changes: +AMBIEN 5 MG TABL5 M1 PO; +CLONIDINE0.1 PO; +ELIMITE60 GM TOP; +ZYRTEC10 M2 PO
--- NOTE | ~2018-12-10 | HPC ---
[facility] [place] [address] PAIN MANAGEMENT CONSULTATION Name: MARVINOLGA Room #: REG [facility] Le[facility]#: [id number] Admission: 12/10/18 Attend Phys: Lili Gama MD Discharge: Date of : 74 Report #: [id number] THIS REPORT FOR: //name// CC: Be Brown DO Latia Gama DATE OF SERVICE: 12/10/2018 CHIEF COMPLAINT: Pain in the low back area and down into the leg. Left side is worse than the right. HISTORY: The patient is a 48-year-old female who has been followed in the Pain Clinic because of lumbar radiculopathy. She has undergone epidural steroid injections and gleaned benefits from these. She returns today indicating that her pain has continued to be problematic. She is having pain that is radiating down into both her left and the right leg. Left leg is most problematic. Pain is radiating down into the posterior portion of her leg with numbness, tingling, and weakness. She has undergone epidural steroid injections in this area before and gleaned benefit from it. She has returned and continues to desire an injection. ALLERGIES: PENICILLIN, KEFLEX. CURRENT MEDICATIONS: Pepcid 20 mg one p.o. b.i.d., trazodone 50 mg at bedtime, Cymbalta 60 mg, Percocet 7.5 mg 1 p.o. b.i.d., Zofran 8 mg p.r.n. nausea, Naprosyn 500 mg b.i.d., morphine sulfate 15 mg daily, Gralise 600 mg 2 pills in the evening, Imitrex 25 mg, Topamax 50 mg, Wellbutrin-XL 300 mg, Katey 10/20 mg, Proventil, albuterol inhaler t.i.d. 1 puff alprazolam 1 mg, anxiety, metformin 500 mg. PAIN CLINIC ASSESSMENT/PQRS: 1. History of osteoarthritis. The patient has some low back pain with pain that is radiating down the L5-S1 area. She is not being treated for rheumatoid arthritis. 2. Height 5 feet 4 inches, weight 212 pounds, BMI is 36.5. 3. Vital signs: Blood pressure 148/118, pulse 103, respiratory rate 16, room air saturation 98%. 4. Pain intensity, 01/22. 5. Fall risk. The patient has not fallen in the last 3 months. 6. Blood thinner. The patient is not on a blood thinning medication. 7. Hypertension. The patient is being treated for hypertension. 8. Opioids greater than 6 weeks. The patient receives medications from one source the Pain Clinic. 9. Risk assessment tool, low for opioid use. 10. Functional assessment tool, 55/70. [facility] [address] [place] [address] PAIN MANAGEMENT CONSULTATION Name: OLGA MARVIN Room #: REG [facility]#: [id number] Admission: 12/10/18 Attend Phys: Lili Gama MD Discharge: Date of : 74 Report #: [id number] 11. Recreational drug use. The patient denies. 12. Tobacco: The patient never smoked. 13. Alcohol. The patient denies other than occasional use of alcoholic beverages. PHYSICAL EXAMINATION: GENERAL: The patient is a well-developed, well-nourished black female, appears her stated age. She is alert and oriented x 3. Affect is appropriate. Speech is fluent. HEENT: Normocephalic, atraumatic. Extraocular eye muscles intact. Sclerae nonicteric. Mucous membranes are moist. NECK: Without adenopathy or JVD. HEART: Regular rate. CHEST: Clear to auscultation without rhonchi or rales. ABDOMEN: Nontender. Bowel sounds present. MUSCULOSKELETAL: Without significant scoliosis, kyphosis or lordosis. Upper extremity muscle strength is judged to be 5-/5 for the major muscle groups in the upper extremity. The patient has pain and discomfort in the L4-L5 dermatomal distribution as well as in the L5-S1, which is most problematic. She feels that the left side is more problematic than the right. Muscle strength in the lower extremity, judged to be 5-/5 for the major muscle groups. Palpation has positive straight leg raise on the left. IMPRESSION: 1. Lumbar radiculopathy in the L5-S1 dermatomal distribution. 2. History of endometriosis. 3. History of disk disease with lesion showing pressure at the L5-S1 nerve root areas. RECOMMENDATIONS: We discussed treatment options with the patient. Risks and benefits of an epidural steroid injection were discussed. Possible complications of the procedure, which could include but are not limited to infection, worsening of pain, no improvement in pain, bleeding, headache, nerve damage and the patient elects to proceed. We will proceed with an injection. We also will provide the patient with her medications. A script for Naprosyn 500 mg 1 p.o. b.i.d., 20 tablets has been written. The patient will also continue with Zofran 8 mg a total of 10 pills have been dispensed. The patient will continue with morphine 15 mg 1 p.o. daily. She will use Percocet 7.5 mg 1 p.o. b.i.d. to help curtail the pain. She will call us if she has any concerns. Zofran has been helpful with decreasing nausea and vomiting and has been rewritten as well. [facility] [address] [place] [address] PAIN MANAGEMENT CONSULTATION Name: MARVINOLGA SAMUEL Rachel [id number] Admission: 12/10/18 Attend Phys: Lili Gama MD Discharge: Date of : 74 Report #: [id number] We would like to thank you for letting us participate in her care. We hope she continues to improve. By: 1403 1546 Lili Gama MD /nt
[2018-12-10 08:39] VITALS: BP 148/118
--- NOTE | 2018-12-10 08:54 | NUR ---
Pain Clinic Assessment: 1. History of Osteoarthritis: DENIES History of Rheumatoid Arthritis: HANDS AND KNEES PER PT 2. Height: 5 ft. 4 in. 162.6 cm. Weight: 212.8 lb. oz. 96.526 kg. Patient's BMI: 36.5 3. Vital Signs: BP: 148/118 Pulse: 103 Resp: 16 Temp: 02 Sat: 98 ECG Mon: 4. Pain Intensity: 10 5. Fall Risk: Dizziness: N Needs help standing or walking: N Fallen in the last 3 months: Y Fall risk comments: 6. Patient on Blood Thinner: None 7. History of Hypertension: Y 8. Opioid Therapy greater than 6 weeks: Y Opiate Contract Signed: 07/07/13 9. Risk Assessment Tool Provided: low-0 10. Functional Assessment Tool: / 11. Recreational Drug Use: Never Drug Type: Tobacco Use: Never Smoker Tobacco Type: Amount or Packs/day: How Many Years: Alcohol Use: Yes Frequency: Special Occasions Quant: 1
== END | disposition home or self-care (01) ==
LOC: PAIN 08:24
DX: M54.16 Radiculopathy, lumbar region (principal); M19.90 Unspecified osteoarthritis, unspecified site; Z88.0 Allergy status to penicillin; Z88.8 Allergy status to other drugs, medicaments and biological substances; Z79.899 Other long term (current) drug therapy

== ENCOUNTER 2019-01-28 08:07 | Emergency (ER) | payer OTHER ==
[~2019-01-28] VITALS: Ht 162.6 cm; Wt 90.7 kg
[~2019-01-28 08:07] MED LIST changes: +CLONIDINE HCL0.3 M2 PO; -CLONIDINE0.1 PO
[2019-01-28 09:22] LABS: URINE BILIRUBIN NEGATIVE (Negative); URINE BLOOD NEGATIVE (Negative); URINE CLARITY CLEAR; URINE COLOR YELLOW; URINE GLUCOSE-RANDOM* NEGATIVE (Negative); URINE KETONES NEGATIVE (Negative); URINE LEUKOCYTES-REFLEX NEGATIVE (Negative); URINE NITRITE-REFLEX NEGATIVE (Negative); URINE PROTEIN (DIPSTICK) NEGATIVE (Negative); URINE SPECIFIC GRAVITY 1.015 (1.005-1.035); URINE UROBILINOGEN 0.2 E.U./dl (0.2-1.0)
[2019-01-28] MEDS ORDERED: MECLIZINE HCL25 M1 PO (12:31)
[2019-01-28 12:46] VITALS: BP 151/91
[2019-02-20] MEDS ORDERED: REMERON15 M2 PO (13:31)
[2019-02-20] MEDS ORDERED: PERCOCET 10-321 EAC1 PO ×2 (14:02→15:09)
[2019-02-20] MEDS ORDERED: MECLIZINE HCL25 M1 PO (14:02)
[2019-02-20] MEDS ORDERED: MS CONTIN15 MG PO (14:06)
== END 2019-01-28 12:37 | disposition home or self-care (01) ==
LOC: ER 08:07
PROVIDERS: Emergency Medicine
DX: R42 Dizziness and giddiness (principal); I10 Essential (primary) hypertension; G43.909 Migraine, unspecified, not intractable, without status migrainosus; G89.29 Other chronic pain; M54.5 Low back pain; E11.9 Type 2 diabetes mellitus without complications; J45.909 Unspecified asthma, uncomplicated; F32.9 Major depressive disorder, single episode, unspecified; F41.9 Anxiety disorder, unspecified; Z90.49 Acquired absence of other specified parts of digestive tract; Z88.1 Allergy status to other antibiotic agents; Z88.0 Allergy status to penicillin; W10.9XXA Fall (on) (from) unspecified stairs and steps, initial encounter; Y92.89 Other specified places as the place of occurrence of the external cause; Y93.89 Activity, other specified; Y99.8 Other external cause status

== ENCOUNTER → 2019-02-20 | Outpatient (CLI) | payer OTHER ==
[~2019-02-20] VITALS: Ht 162.6 cm; Wt 102.0 kg
[~2019-02-20] MED LIST changes: +MECLIZINE HCL25 M1 PO; +REMERON15 M2 PO
[2019-02-20 13:30] VITALS: BP 124/86
--- NOTE | 2019-02-20 13:43 | NUR ---
Pain Clinic Assessment: 1. History of Osteoarthritis: DENIES History of Rheumatoid Arthritis: HANDS AND KNEES PER PT 2. Height: 5 ft. 4 in. 162.6 cm. Weight: 224.8 lb. oz. 101.969 kg. Patient's BMI: 38.6 3. Vital Signs: BP: 124/86 Pulse: 101 Resp: 16 Temp: 02 Sat: 99 ECG Mon: 4. Pain Intensity: 8 5. Fall Risk: Dizziness: N Needs help standing or walking: N Fallen in the last 3 months: N Fall risk comments: 6. Patient on Blood Thinner: None 7. History of Hypertension: Y 8. Opioid Therapy greater than 6 weeks: Y Opiate Contract Signed: 07/07/13 9. Risk Assessment Tool Provided: low-0 10. Functional Assessment Tool: / 11. Recreational Drug Use: Never Drug Type: Tobacco Use: Never Smoker Tobacco Type: Amount or Packs/day: How Many Years: Alcohol Use: Yes Frequency: Quant:
== END | disposition home or self-care (01) ==
LOC: PAIN 06:54
DX: M54.16 Radiculopathy, lumbar region (principal); Z88.8 Allergy status to other drugs, medicaments and biological substances; Z88.0 Allergy status to penicillin; Z79.899 Other long term (current) drug therapy

== ENCOUNTER 2019-02-24 08:32 | Emergency (ER) | payer OTHER ==
[~2019-02-24] VITALS: Ht 170.2 cm; Wt 105.0 kg
[2019-02-24 10:47] VITALS: BP 138/77
== END 2019-02-24 10:49 | disposition home or self-care (01) ==
LOC: ER 08:32
DX: G43.909 Migraine, unspecified, not intractable, without status migrainosus (principal); M54.5 Low back pain; R11.2 Nausea with vomiting, unspecified; R42 Dizziness and giddiness; G89.29 Other chronic pain; I10 Essential (primary) hypertension; E11.9 Type 2 diabetes mellitus without complications; J45.909 Unspecified asthma, uncomplicated; F41.9 Anxiety disorder, unspecified; F32.9 Major depressive disorder, single episode, unspecified; E66.9 Obesity, unspecified; Z68.36 Body mass index [BMI] 36.0-36.9, adult; Z90.49 Acquired absence of other specified parts of digestive tract; Z98.51 Tubal ligation status; Z88.0 Allergy status to penicillin; Z88.1 Allergy status to other antibiotic agents

== ENCOUNTER → 2019-03-18 | Outpatient (CLI) | payer OTHER ==
[~2019-03-18] VITALS: Ht 162.6 cm; Wt 104.3 kg
[2019-03-18 12:52] VITALS: BP 122/80
--- NOTE | 2019-03-18 13:16 | NUR ---
Pain Clinic Assessment: 1. History of Osteoarthritis: DENIES History of Rheumatoid Arthritis: HANDS AND KNEES PER PT 2. Height: 5 ft. 4 in. 162.6 cm. Weight: 230.0 lb. oz. 104.328 kg. Patient's BMI: 39.5 3. Vital Signs: BP: 122/80 Pulse: 79 Resp: 14 Temp: 02 Sat: 100 ECG Mon: 4. Pain Intensity: 9 5. Fall Risk: Dizziness: N Needs help standing or walking: N Fallen in the last 3 months: N Fall risk comments: 6. Patient on Blood Thinner: None 7. History of Hypertension: Y 8. Opioid Therapy greater than 6 weeks: Y Opiate Contract Signed: 07/07/13 9. Risk Assessment Tool Provided: low-0 10. Functional Assessment Tool: 55/ 11. Recreational Drug Use: Never Drug Type: Tobacco Use: Never Smoker Tobacco Type: Amount or Packs/day: How Many Years: Alcohol Use: Yes Frequency: Special Occasions Quant:
--- NOTE | 2019-04-01 13:08 | HPC ---
[facility] [place] [address] PAIN MANAGEMENT CONSULTATION Name: OLGA MARVIN Room #: REG [facility] Leena#: [id number] Admission: 03/18/19 Attend Phys: Lili Gama MD Discharge: Date of : 74 Report #: [id number] THIS REPORT FOR: //name// CC: Latia Gama DATE OF SERVICE: 03/18/2019 CHIEF COMPLAINT: Here for an epidural injection. HISTORY: The patient is a 49-year-old female who has been followed in the pain clinic. She has returned today for an epidural steroid injection. They have been beneficial in the past. Rates her pain as 9/10 today. She is experiencing pain that is radiating down the posterior portion of her leg. She notes that the pain is worse with standing, bending as well as with activities of daily living. The weather has been changing and humidity level as well as temperature. These things have exacerbated her discomfort. ALLERGIES: PENICILLIN. CURRENT MEDICATIONS: Pepcid 20 mg one p.o. b.i.d., trazodone 50 mg at bedtime, Cymbalta 60 mg, Percocet 7.5 mg 1 p.o. b.i.d., Zofran 8 mg p.r.n., Naprosyn 500 mg b.i.d., morphine sulfate 15 mg, Gralise 600 mg 2 pills in the evening, Imitrex 25 mg, Topamax 50 mg, Wellbutrin-XL 300 mg, Katey 10 mg, Proventil, albuterol inhaler t.i.d., alprazolam 1 mg-anxiety, and metformin 500 mg. PAIN CLINIC ASSESSMENT AND PQRS: 1. The patient denies osteoarthritis. Complains of some rheumatoid arthritic changes in her hands and knees. 2. Height 5 feet 4 inches, weight 230 pounds, BMI is 39.5. 3. Vital signs: Blood pressure 122/80, pulse 79, respiratory rate 14, room air saturation 100%. 4. Pain intensity 12/23. 5. Fall risk. The patient has not fallen in the last 3 months. 6. Blood thinner. The patient is not on a blood thinning medication. 7. Hypertension. The patient is being treated for hypertension. 8. Opioids greater than 6 weeks. The patient received medication from one source, the pain clinic. 9. Risk assessment tool, low for opioid use. 10. Functional assessment tool, 55/70. 11. Recreational drug use: The patient denies. 12. Tobacco: The patient has never smoked. 13. Alcohol: The patient rarely drinks alcoholic beverages. PHYSICAL EXAMINATION: GENERAL: The patient is a well-developed, well-nourished black female, appears [address] [address] PAIN MANAGEMENT CONSULTATION Name: OLGA MARVIN Room #: REG [facility]#: [id number] Admission: 03/18/19 Attend Phys: Lili Gama MD Discharge: Date of : 74 Report #: [id number] her stated age. She is alert and oriented x 3. Affect is appropriate. Speech is fluent. HEENT: Normocephalic, atraumatic. Extraocular eye muscles intact. MUSCULOSKELETAL: The patient is experiencing pain, which is radiating down the lower portion of her back with pain down to the left leg. Positive straight leg raise. IMPRESSION: 1. Lumbar radiculopathy with L5-S1 dermatomal distribution radiating down the left leg. 2. History of endometriosis. 3. History of disk disease with lesion showing pressure on the L5-S1 nerve root. 4. Headaches history. RECOMMENDATIONS: We discussed treatment options with the patient. Risks and benefits of an epidural steroid injection were discussed. They include but are not limited to infection, worsening pain, no improvement in pain, nerve damage and the patient elects to proceed. PROCEDURE NOTE: The patient was taken to the procedure area. She was then assisted in getting on examination table. Her back was sterilely prepped with a Betadine solution. Fluoroscopy using anterior, posterior as well as lateral viewing were implemented. A pillow had been placed under the abdomen to improve positioning. Her back was sterilely prepped with a Betadine solution and allowed to dry. At the L5-S1 area, 0.25% bupivacaine was infiltrated with a 25-gauge needle. After the area had been anesthetized, a 17-gauge Tuohy with loss of resistance technique was used to gain access to the epidural space. There was no CSF, heme or paresthesia. A total of 80 mg Depo-Medrol, 40 mg triamcinolone and 2 mL of 0.25% bupivacaine was injected. The patient tolerated the procedure well. She remained in the pain clinic for an appropriate amount of time. She will follow up in the future as needed. We would like to thank you for letting us participate in her care. We hope she continues to improve. <ELECTRONICALLY SIGNED> By: Lili Gama MD 04/01/19 1308 [id number] Lili Gama MD /comfort
== END | disposition home or self-care (01) ==
LOC: PAIN 07:09
DX: M54.16 Radiculopathy, lumbar region (principal); G89.29 Other chronic pain; Z98.890 Other specified postprocedural states; Z79.899 Other long term (current) drug therapy; Z88.0 Allergy status to penicillin; Z88.8 Allergy status to other drugs, medicaments and biological substances

== ENCOUNTER → 2019-05-15 | Outpatient (CLI) | payer OTHER ==
[~2019-05-15] VITALS: Ht 162.6 cm; Wt 104.3 kg
[~2019-05-15] MED LIST changes: +NARCAN4 MG NARES; +ONDANSETRON ODT8 MG PO; +PRILOSEC OTC20 MG PO; +REGLAN 5 MG TAB5 MG PO; +SENNA-TIME S T1 EACH PO; +ZOFRAN4 MG PO
[2019-05-15 10:37] VITALS: BP 173/102
--- NOTE | 2019-05-15 10:51 | NUR ---
Pain Clinic Assessment: 1. History of Osteoarthritis: NONE History of Rheumatoid Arthritis: NOT CONFIRMED TO BE TESTED SOON 2. Height: 5 ft. 4 in. 162.6 cm. Weight: 230.0 lb. oz. 104.328 kg. Patient's BMI: 39.5 3. Vital Signs: BP: 173/102 Pulse: 102 Resp: 15 Temp: 02 Sat: 100 ECG Mon: 4. Pain Intensity: 9 5. Fall Risk: Dizziness: N Needs help standing or walking: N Fallen in the last 3 months: N Fall risk comments: 6. Patient on Blood Thinner: None 7. History of Hypertension: Y 8. Opioid Therapy greater than 6 weeks: Y Opiate Contract Signed: 07/07/13 9. Risk Assessment Tool Provided: low-0 10. Functional Assessment Tool: 55/70 11. Recreational Drug Use: Never Drug Type: Tobacco Use: Never Smoker Tobacco Type: Amount or Packs/day: How Many Years: Alcohol Use: Yes Frequency: Special Occasions Quant:
== END | disposition home or self-care (01) ==
LOC: PAIN 05-08 06:39
DX: M54.16 Radiculopathy, lumbar region (principal); G89.29 Other chronic pain; Z98.890 Other specified postprocedural states; Z88.0 Allergy status to penicillin; Z79.899 Other long term (current) drug therapy; Z79.891 Long term (current) use of opiate analgesic

== ENCOUNTER 2019-05-19 03:09 | Emergency (ER) | payer OTHER ==
[~2019-05-19] VITALS: Ht 162.6 cm; Wt 99.8 kg
[~2019-05-19 03:09] MED LIST changes: -ONDANSETRON ODT8 MG PO; -PRILOSEC OTC20 MG PO; -REGLAN 5 MG TAB5 MG PO; -SENNA-TIME S T1 EACH PO
[2019-05-19 04:21] VITALS: BP 192/96
[2019-05-19 04:23] LABS: ABSOLUTE NEUTROPHILS 7.4 thou/uL (1.4-8.2); BASOPHILS 1.1 % (0.0-2.0); EOSINOPHILS 0.1 % (0.0-3.0); HEMATOCRIT 37.8 % (37.0-47.0); HEMOGLOBIN 11.9 gm/dL (12.0-15.0); LYMPHOCYTES 20.7 % (24.0-44.0); MCH 28.2 pg (26.0-34.0); MCHC 31.5 g/dL (28.0-37.0); MCV 89.6 fL (80.0-100.0); MONOCYTES 8.1 % (1.0-8.0); PLATELET COUNT 381 thou/uL (150-400); RBC 4.22 mil/uL (4.20-5.00); RDW 15.4 % (10.5-14.5); WBC 10.6 thou/uL (4.0-11.0)
[2019-05-19 04:31] LABS: ANION GAP 12 mmol/L (7-16); BUN 12 mg/dL (7-18); CALCIUM 10.1 mg/dL (8.5-10.1); CHLORIDE 101 mmol/L (98-107); CO2 28 mmol/L (21-32); CREATININE 0.9 mg/dL (0.6-1.0); GLUCOSE 166 mg/dL (74-106); POTASSIUM 3.2 mmol/L (3.5-5.1); SODIUM 141 mmol/L (136-145)
[2019-05-19 04:42] LABS: ALBUMIN 3.8 g/dL (3.4-5.0); LIPASE 46 U/L (73-393); SGOT 18 U/L (15-37); SGPT 25 U/L (30-65); TOTAL BILIRUBIN 0.4 mg/dL (<0.1-1.0); TOTAL PROTEIN 8.3 g/dL (6.4-8.2); TROPONIN-I <0.06 ng/mL (<0.06)
[2019-05-19 05:35] LABS: URINE BILIRUBIN NEGATIVE (Negative); URINE BLOOD NEGATIVE (Negative); URINE CLARITY CLOUDY; URINE COLOR YELLOW; URINE GLUCOSE-RANDOM* NEGATIVE (Negative); URINE KETONES NEGATIVE (Negative); URINE LEUKOCYTES-REFLEX NEGATIVE (Negative); URINE NITRITE-REFLEX NEGATIVE (Negative); URINE PROTEIN (DIPSTICK) NEGATIVE (Negative); URINE SPECIFIC GRAVITY 1.015 (1.005-1.035); URINE UROBILINOGEN 0.2 E.U./dl (0.2-1.0)
[2019-05-19] MEDS ORDERED: PRILOSEC OTC20 MG PO (05:43)
[2019-05-19] MEDS ORDERED: TRAMADOL 50 MG50 MG PO (05:43)
[2019-05-19] MEDS ORDERED: ONDANSETRON ODT8 MG PO (05:43)
[2019-05-23] MEDS ORDERED: SENNA-TIME S T1 EACH PO (12:00)
[2019-05-23] MEDS ORDERED: REGLAN 5 MG TAB5 MG PO (12:00)
[2019-05-23] MEDS ORDERED: MIRALAX17 GM PO (12:00)
--- NOTE | 2019-05-27 12:32 | EKG ---
[facility] [place] [address] ELECTROCARDIOGRAM REPORT Name: OLGA MARVIN Room #: [facility]#: [id number] Admission: 05/19/19 Attend Phys: Discharge: 05/19/19 Date of : 74 Report #: [id number] THIS REPORT FOR: cc: Latia Herring DNP, Mary E. DNP Lundgren, Craig H. MD [facility] ~ THIS REPORT FOR: //name// [facility] ED Test Date: 2019-05-19 Test Time: 04:02:40 Pat Name: OLGA MARVIN Department: Room: Gender: Mail Machine Operator: sergio : 1970 Requested By: Jamie Lyons Order Number: [id number] MD: Thanh Jo Measurements Intervals [place] Rate: 82 P: 10 OR: 141 QRS: 20 QRSD: 100 T: 46 QT: 420 QTc: 491 Interpretive Statements Sinus rhythm Borderline prolonged QT interval Compared to ECG 10/21/2018 14:10:43 T-wave abnormality no longer present Electronically Signed On 05-19-2019 9:24:54 [facility] by Thanh Jo [email or web address] <ELECTRONICALLY SIGNED> By: Thanh Jo MD, [facility] 05/19/19 0924 [id number] Thanh Jo MD, [facility] /EPI
== END 2019-05-19 06:06 | disposition home or self-care (01) ==
LOC: ER 03:09
PROVIDERS: Emergency Medicine
DX: R11.2 Nausea with vomiting, unspecified (principal); R10.13 Epigastric pain; R10.30 Lower abdominal pain, unspecified; I10 Essential (primary) hypertension; E11.9 Type 2 diabetes mellitus without complications; E66.9 Obesity, unspecified; J45.909 Unspecified asthma, uncomplicated; M54.9 Dorsalgia, unspecified; G43.909 Migraine, unspecified, not intractable, without status migrainosus; G89.29 Other chronic pain; F32.9 Major depressive disorder, single episode, unspecified; F41.9 Anxiety disorder, unspecified; Z98.51 Tubal ligation status; Z90.49 Acquired absence of other specified parts of digestive tract; Z68.37 Body mass index [BMI] 37.0-37.9, adult; Z88.0 Allergy status to penicillin; Z88.1 Allergy status to other antibiotic agents

== ENCOUNTER → 2019-05-19 | Outpatient (CLI) | payer OTHER | LOC: RAD 08:45 | DX: K44.9 Diaphragmatic hernia without obstruction or gangrene (principal); D25.9 Leiomyoma of uterus, unspecified; N85.8 Other specified noninflammatory disorders of uterus; Z90.49 Acquired absence of other specified parts of digestive tract ==

== ENCOUNTER 2019-05-22 10:44 | Inpatient (IN) | payer OTHER ==
[~2019-05-22] VITALS: Ht 167.6 cm; Wt 102.1 kg
[~2019-05-22 10:44] MED LIST changes: +ONDANSETRON ODT8 MG PO; +PRILOSEC OTC20 MG PO
[2019-05-22 10:45] VITALS: BP 210/150
[2019-05-22 11:56] LABS: ABSOLUTE NEUTROPHILS 9.9 thou/uL (1.4-8.2); BASOPHILS 0.7 % (0.0-2.0); EOSINOPHILS 0.3 % (0.0-3.0); HEMATOCRIT 39.6 % (37.0-47.0); HEMOGLOBIN 12.4 gm/dL (12.0-15.0); LYMPHOCYTES 16.8 % (24.0-44.0); MCH 27.9 pg (26.0-34.0); MCHC 31.3 g/dL (28.0-37.0); MONOCYTES 8.6 % (1.0-8.0); PLATELET COUNT 391 thou/uL (150-400); POLYS 73.6 % (36.0-66.0); RBC 4.45 mil/uL (4.20-5.00); RDW 15.5 % (10.5-14.5); WBC 13.4 thou/uL (4.0-11.0)
[2019-05-22 12:11] LABS: CALCIUM 9.3 mg/dL (8.5-10.1); CREATININE 0.9 mg/dL (0.6-1.0); POTASSIUM 3.1 mmol/L (3.5-5.1)
[2019-05-22 12:17] LABS: TOTAL BILIRUBIN 0.3 mg/dL (<0.1-1.0); TOTAL PROTEIN 8.5 g/dL (6.4-8.2)
[2019-05-22 14:13] VITALS: BP 202/134
[2019-05-22 14:18] VITALS: BP 197/133
[2019-05-22 15:15] VITALS: BP 145/90
--- NOTE | 2019-05-22 19:35 | NUR ---
PT ADMITTED FROM THE ER AT 1430. ADMISSION COMPLEETE. HOME MEDS STARTED BACK UP. PT HAS PRN XANAX BID ON BOARD. IV IS PATENT WITH NO REDNESS OR EDEMA. FLUIDS INFUSING. STILL NEEDING A URINE SAMPLE FOR A RAPID DRUG SCREEN. A&Ox4. PT HAS ABDOMINAL PAIN THAT GOES UP TO THE STERNUM THAT IS NON CARDIAC. GI HAS BEEN CONSULTED. PT IS TO BE NPO AFTER MIDNIGHT WITH A POSSIBLE EGD IN THE MORNING. NO ORDERS ARE IN PLACE YET. FALL RISK PROTOCOL IN PLACE. CALL LIGHT IN REACH.
[2019-05-23 00:11] VITALS: BP 132/78
--- NOTE | 2019-05-23 03:16 | NUR ---
ASSUMED CARE FROM PREVIOUS SHIFT, PT CRYING OUT IN PAIN , PAIN PILL GIVEN BUT PT REQUESTING IV PT MEDICATION, CRIMINALIST NAZARIO CALLED ORDER FOR TORODAL GIVEN AND PT APPEARS TO BE RESTING. PT TOLERATING CLEAR LIQ. PT RESTING QUIETLY THROUGHOUT HOURLY ROUNDS, WILL REPORT CHANGES OR ABNORMAL FINDINGS. PT NPO PRSENTLY FOR PROCEDURE.
[2019-05-23 06:24] VITALS: BP 141/66
[2019-05-23 06:27] LABS: HEMATOCRIT 37.4 % (37.0-47.0); HEMOGLOBIN 11.8 gm/dL (12.0-15.0); MCH 28.5 pg (26.0-34.0); MCHC 31.6 g/dL (28.0-37.0); MCV 90.3 fL (80.0-100.0); RBC 4.14 mil/uL (4.20-5.00); RDW 15.3 % (10.5-14.5); WBC 7.7 thou/uL (4.0-11.0)
[2019-05-23 06:41] LABS: ALBUMIN 3.2 g/dL (3.4-5.0); CALCIUM 8.3 mg/dL (8.5-10.1); CREATININE 0.9 mg/dL (0.6-1.0); POTASSIUM 3.3 mmol/L (3.5-5.1); TOTAL BILIRUBIN 0.3 mg/dL (<0.1-1.0); TOTAL PROTEIN 7.1 g/dL (6.4-8.2)
[2019-05-23 07:13] VITALS: BP 130/69
--- NOTE | 2019-05-23 10:26 | NUR ---
PT CARE ASSUMED AT 0700. A&Ox4. URINE SAMPLE COLLECTED AND SENT TO LAB AND AWAITING RESULTS. EGD IS TO BE DONE ON A OUT PT BASIS. DIET HAS BEEN ADVANCED TO REGULAR WHICH THE PT HAS TOLERATED WELL. FLUIDS HAVE BEEN DC'D AND PT HAS NOT HAD ANY BOUTS OF N/V. PT IS UP INDEPENDENTLY IN THE ROOM. PT IS TO DC TODAY AFTER DR. GONZALEZ CONSULTS WITH GI TO SET UP APPOINTMENT. CALL LIGHT IN REACH AND WILL CONTINUE TO MONITOR. XANAX WAS GIVEN.
[2019-05-23 10:45] LABS: URINE BILIRUBIN NEGATIVE (Negative); URINE BLOOD NEGATIVE (Negative); URINE CLARITY CLEAR; URINE COLOR YELLOW; URINE GLUCOSE-RANDOM* NEGATIVE (Negative); URINE KETONES NEGATIVE (Negative); URINE LEUKOCYTES-REFLEX NEGATIVE (Negative); URINE NITRITE-REFLEX NEGATIVE (Negative); URINE PROTEIN (DIPSTICK) NEGATIVE (Negative); URINE SPECIFIC GRAVITY 1.015 (1.005-1.035); URINE UROBILINOGEN 0.2 E.U./dl (0.2-1.0)
[2019-05-23 10:50] LABS: AMP/METHAMP Negative (Negative); BARBITURATES POSITIVE (Negative); BENZODIAZEPINES POSITIVE (Negative); COCAINE POSITIVE (Negative); METHADONE Negative (Negative); OPIATES POSITIVE (Negative); PCP Negative (Negative)
[2019-05-23] MEDS ORDERED: REGLAN 5 MG TAB5 MG PO ×2 (12:00)
[2019-05-23] MEDS ORDERED: SENNA-TIME S T1 EACH PO ×2 (12:00)
[2019-05-23] MEDS ORDERED: MIRALAX17 GM PO ×2 (12:00)
[2019-05-23 12:12] VITALS: BP 130/69
== END 2019-05-23 13:37 | disposition home or self-care (01) | DRG 392 ==
LOC: ER 10:44 → 4S 13:41 → EROBS 13:41 → 4S 14:39
PROVIDERS: Emergency Medicine; Nurse Practitioner; ADMIT Hospitalist
DX: K59.03 Drug induced constipation (principal); I16.1 Hypertensive emergency; I10 Essential (primary) hypertension; J45.909 Unspecified asthma, uncomplicated; E28.2 Polycystic ovarian syndrome; F32.9 Major depressive disorder, single episode, unspecified; F41.9 Anxiety disorder, unspecified; E11.9 Type 2 diabetes mellitus without complications; G89.4 Chronic pain syndrome; E87.6 Hypokalemia; D72.829 Elevated white blood cell count, unspecified; M54.2 Cervicalgia; M06.9 Rheumatoid arthritis, unspecified; G43.909 Migraine, unspecified, not intractable, without status migrainosus; G44.89 Other headache syndrome; K44.9 Diaphragmatic hernia without obstruction or gangrene; M79.7 Fibromyalgia; F19.10 Other psychoactive substance abuse, uncomplicated; K31.89 Other diseases of stomach and duodenum; T40.605A Adverse effect of unspecified narcotics, initial encounter; D25.9 Leiomyoma of uterus, unspecified; Z90.49 Acquired absence of other specified parts of digestive tract; Y92.89 Other specified places as the place of occurrence of the external cause; Z86.010 Personal history of colon polyps; Z82.5 Family history of asthma and other chronic lower respiratory diseases; Z86.73 Personal history of transient ischemic attack (TIA), and cerebral infarction without residual deficits; Z80.9 Family history of malignant neoplasm, unspecified; Z80.2 Family history of malignant neoplasm of other respiratory and intrathoracic organs; Z83.3 Family history of diabetes mellitus; Z79.84 Long term (current) use of oral hypoglycemic drugs; Z79.891 Long term (current) use of opiate analgesic; Z79.899 Other long term (current) drug therapy; Z88.1 Allergy status to other antibiotic agents; Z88.0 Allergy status to penicillin
CPT/HCPCS: 10195

== ENCOUNTER 2019-09-10 14:25 | Emergency (ER) | payer OTHER ==
[~2019-09-10] VITALS: Ht 160 cm; Wt 95.3 kg
[~2019-09-10 14:25] MED LIST changes: +REGLAN 5 MG TAB5 MG PO; +SENNA-TIME S T1 EACH PO
[2019-09-10 16:08] LABS: ABSOLUTE NEUTROPHILS 6.5 thou/uL (1.4-8.2); BASOPHILS 0.5 % (0.0-2.0); EOSINOPHILS 1.1 % (0.0-3.0); HEMATOCRIT 40.4 % (37.0-47.0); MCH 28.7 pg (26.0-34.0); MCHC 32.3 g/dL (28.0-37.0); MONOCYTES 6.9 % (1.0-8.0); PLATELET COUNT 327 thou/uL (150-400); POLYS 75.5 % (36.0-66.0); RBC 4.53 mil/uL (4.20-5.00); RDW 14.5 % (10.5-14.5); WBC 8.6 thou/uL (4.0-11.0)
[2019-09-10 16:22] LABS: ANION GAP 6 mmol/L (7-16); BUN 6 mg/dL (7-18); CALCIUM 8.6 mg/dL (8.5-10.1); CHLORIDE 102 mmol/L (98-107); CO2 29 mmol/L (21-32); CREATININE 0.8 mg/dL (0.6-1.0); GLUCOSE 93 mg/dL (74-106); POTASSIUM 4.3 mmol/L (3.5-5.1); SODIUM 137 mmol/L (136-145)
[2019-09-10 16:26] LABS: ALBUMIN 3.2 g/dL (3.4-5.0); LIPASE 109 U/L (73-393); SGOT 36 U/L (15-37); SGPT 46 U/L (30-65); TOTAL BILIRUBIN 0.3 mg/dL (0.2-1.0); TOTAL PROTEIN 7.5 g/dL (6.4-8.2)
[2019-09-10 16:27] LABS: DIRECT BILIRUBIN < 0.1 mg/dL (<0.1-0.2)
[2019-09-10] MEDS ORDERED: ZOFRAN ODT4 MG DISSOLVE (17:02)
[2019-09-10] MEDS ORDERED: AZOR 10-20 MG1 EACH PO (17:02)
[2019-09-10] MEDS ORDERED: NORCO 5-325 TA1 EAC1 PO (17:02)
[2019-09-10 17:15] VITALS: BP 198/116
== END 2019-09-10 17:16 | disposition home or self-care (01) ==
LOC: ER 14:25
PROVIDERS: Physician Assistant
DX: K58.9 Irritable bowel syndrome, unspecified (principal); I10 Essential (primary) hypertension; J45.909 Unspecified asthma, uncomplicated; E11.9 Type 2 diabetes mellitus without complications; G43.909 Migraine, unspecified, not intractable, without status migrainosus; M79.7 Fibromyalgia; G89.29 Other chronic pain; Z79.899 Other long term (current) drug therapy; Z88.0 Allergy status to penicillin; Z88.1 Allergy status to other antibiotic agents; Z90.49 Acquired absence of other specified parts of digestive tract; Z98.51 Tubal ligation status

== ENCOUNTER 2020-01-13 19:00 | Emergency (ER) | payer OTHER ==
[~2020-01-13] VITALS: Ht 160 cm; Wt 99.8 kg
[~2020-01-13 19:00] MED LIST changes: +NORCO 5-325 TA1 EAC1 PO; +ZOFRAN ODT4 MG PO
[2020-01-13] MEDS ORDERED: CLEOCIN HCL150 MG PO (19:52)
[2020-01-13] MEDS ORDERED: MAGIC MOUTHWASH SWISH&SPIT (20:04)
[2020-01-13] MEDS ORDERED: MOBIC7.5 MG PO (20:10)
[2020-01-13 20:20] VITALS: BP 183/101
== END 2020-01-13 20:21 | disposition home or self-care (01) ==
LOC: ER 19:00
DX: K08.89 Other specified disorders of teeth and supporting structures (principal); I10 Essential (primary) hypertension; J45.909 Unspecified asthma, uncomplicated; E11.9 Type 2 diabetes mellitus without complications; M79.89 Other specified soft tissue disorders; G43.909 Migraine, unspecified, not intractable, without status migrainosus; Z90.49 Acquired absence of other specified parts of digestive tract; Z79.899 Other long term (current) drug therapy; Z88.0 Allergy status to penicillin; Z88.1 Allergy status to other antibiotic agents

== ENCOUNTER 2020-02-07 18:17 | Emergency (ER) | payer OTHER ==
[~2020-02-07] VITALS: Ht 160 cm; Wt 97.5 kg
[~2020-02-07 18:17] MED LIST changes: +MAGIC MOUTHWASH SWISH&SPIT; +MOBIC7.5 MG PO
[2020-02-07] MEDS ORDERED: TRAMADOL 50 MG50 MG PO (19:32)
[2020-02-07] MEDS ORDERED: CLEOCIN HCL300 MG PO (19:32)
[2020-02-07 20:18] VITALS: BP 164/99
== END 2020-02-07 20:18 | disposition home or self-care (01) ==
LOC: ER 18:17
DX: K04.7 Periapical abscess without sinus (principal); I10 Essential (primary) hypertension; E11.9 Type 2 diabetes mellitus without complications; J45.909 Unspecified asthma, uncomplicated; G43.909 Migraine, unspecified, not intractable, without status migrainosus; G89.29 Other chronic pain; M54.9 Dorsalgia, unspecified; Z90.49 Acquired absence of other specified parts of digestive tract; Z79.2 Long term (current) use of antibiotics; Z79.899 Other long term (current) drug therapy; Z88.0 Allergy status to penicillin; Z88.1 Allergy status to other antibiotic agents